=== PATIENT | female | born 1970 | race Caucasian/White ===

== ENCOUNTER 2016-12-13 14:17 | Inpatient (IN) | payer OTHER ==
[~2016-12-13] VITALS: Ht 160 cm; Wt 70.0 kg
[2016-12-13 14:17] VITALS: BP 139/88; PULSE 112; RESP 20; TEMP 97.6; O2SAT 99
--- NOTE | 2016-12-13 14:30 | PD ---
HPI Chief Complaint: Cardiac Complaint Time Seen by Provider: 14:30 Travel History International Travel<30 days: No Contact w/Intl Traveler<30days: No Traveled to known affect area: No History of Present Illness HPI 46-year-old female presents the emergency department via EMS with reports of palpitations. Patient has no history of this in the past. Patient states he developed palpitations after landing the dog out while dying her hair approximately 2 hours prior to my examination. Patient states a feeling of her heart racing in her chest without significant shortness of breath or pain. Patient states she thought it may be due to the hair dye, which she then shampooed out, without change in her symptoms. Patient then tried laying down in bed for a while but continued to have palpitations. She felt increasingly weak and somewhat nauseous, and called 911. When paramedics arrived, the patient was reported to have a pulse in the 200s, and she was given adenosine 1. Patient is better at time of exam. Patient denies changes in medications or supplements. She takes no allergies medications. She denies use of Sudafed. Patient denies use of large amount of caffeine or other stimulants. Patient does admit to recent increased stressors, but does not elaborate. She is allergic to penicillin. [facility] Social History Alcohol Use: No Tobacco Use: No Substance Use: No Allergies-Medications (Allergen,Severity, Reaction): Coded Allergies: Penicillin (Verified Allergy, Unknown, 12/13/16) Reported Meds & Prescriptions Reported Meds & Active Scripts Active Reported Vitamin D3 (Cholecalciferol) 5,000 Unit Cap 5,000 Units PO HS Multi Vitamin (Multiple Vitamin) 1 Tab Tab 1 Tab PO HS Physical Exam Narrative GENERAL: Patient appears in no acute distress. SKIN: Warm and dry. Normal color. Normal turgor. HEAD: Atraumatic. Normocephalic. EYES: Pupils equal and round. No scleral icterus. No injection or drainage. ENT: No nasal bleeding or discharge. Mucous membranes pink and moist. Pharynx is normal. TMs are normal bilaterally. Airway is patent. NECK: Trachea midline. No JVD. Supple nontender. No palpable goiter or thyroid. CARDIOVASCULAR: Tachycardic rate and normal rhythm. RESPIRATORY: No accessory muscle use. Clear to auscultation. Breath sounds equal bilaterally. GASTROINTESTINAL: Abdomen soft, non-tender, nondistended. Hepatic and splenic margins not palpable. MUSCULOSKELETAL: Extremities without clubbing, cyanosis, or edema. No obvious deformities. NEUROLOGICAL: Awake and alert. No obvious cranial nerve deficits. Motor grossly within normal limits. Five out of 5 muscle strength in the arms and legs. Normal speech. PSYCHIATRIC: Appropriate mood and affect; insight and judgment normal. Data Data Last Documented VS Vital Signs Date Time Temp Pulse Resp B/P Pulse Ox O2 Delivery O2 Flow Rate FiO2 12/13/16 15:30 133 20 97 Room Air 12/13/16 15:00 136/85 12/13/16 14:42 2 12/13/16 14:17 97.6 Orders Electrocardiogram (12/13/16 ) Ckmb (Isoenzyme) Profile (12/13/16 14:38) Complete Blood Count With Diff (12/13/16 14:38) Comprehensive Metabolic Panel (12/13/16 14:38) Magnesium (Mg) (12/13/16 14:38) Prothrombin Time / Inr (Pt) (12/13/16 14:38) Act Partial Throm Time (Ptt) (12/13/16 14:38) Troponin I (12/13/16 14:38) Chest, Single Ap (12/13/16 14:38) Ecg Monitoring (12/13/16 14:38) Bilateral Bp Monitoring (12/13/16 14:38) Iv Access Insert/Monitor (12/13/16 14:38) Oximetry (12/13/16 14:38) Oxygen Administration (12/13/16 14:38) Sodium Chloride 0.9% Flush (Ns Flush) (12/13/16 14:45) Sodium Chlorid 0.9% 500 Ml Inj (Ns 500 M (12/13/16 14:45) Urinalysis - C+S If Indicated (12/13/16 14:38) Ed Urine Pregnancytest Poc (12/13/16 14:38) Thyroid Stimulating Hormone (12/13/16 14:38) Diltiazem Inj (Cardizem Inj) (12/13/16 15:45) Sodium Chlorid 0.9% 500 Ml Inj (Ns 500 M (12/13/16 15:45) Lorazepam Inj (Ativan Inj) (12/13/16 15:45) Ct Pulmonary Angiogram (12/13/16 15:40) CKMB (12/13/16 14:45) CKMB% (12/13/16 14:45) Aspirin Chew (Aspirin Chew) (12/13/16 16:15) Admit Order (Ed Use Only) (12/13/16 16:51) Labs Laboratory Tests Test 12/13/16 14:45 White Blood Count 10.6 TH/MM3 Red Blood Count 4.15 MIL/MM3 Hemoglobin 12.6 GM/DL Hematocrit 36.6 % Mean Corpuscular Volume 88.3 FL Mean Corpuscular Hemoglobin 30.3 PG Mean Corpuscular Hemoglobin 34.4 % Concent Red Cell Distribution Width 13.6 % Platelet Count 208 TH/MM3 Mean Platelet Volume 10.9 FL Neutrophils (%) (Auto) 58.0 % Lymphocytes (%) (Auto) 33.8 % Monocytes (%) (Auto) 6.8 % Eosinophils (%) (Auto) 0.8 % Basophils (%) (Auto) 0.6 % Neutrophils # (Auto) 6.1 TH/MM3 Lymphocytes # (Auto) 3.6 TH/MM3 Monocytes # (Auto) 0.7 TH/MM3 Eosinophils # (Auto) 0.1 TH/MM3 Basophils # (Auto) 0.1 TH/MM3 CBC Comment DIFF FINAL Differential Comment Prothrombin Time 12.0 SEC Prothromb Time International 1.1 RATIO Ratio Activated Partial 26.0 SEC Thromboplast Time Urine Color COLORLESS Urine Turbidity CLEAR Urine pH 6.5 Urine Specific [place] 1.005 Urine Protein NEG mg/dL Urine Glucose (UA) NEG mg/dL Urine Ketones NEG mg/dL Urine Occult Blood NEG Urine Nitrite NEG Urine Bilirubin NEG Urine Urobilinogen LESS THAN 2.0 MG/DL Urine Leukocyte Esterase NEG Urine Squamous Epithelial <1 /hpf Cells Urine Mucus FEW /lpf Microscopic Urinalysis Comment CULT NOT INDICATED Sodium Level 137 MEQ/L Potassium Level 3.9 MEQ/L Chloride Level 104 MEQ/L Carbon Dioxide Level 23.2 MEQ/L Anion Gap 10 MEQ/L Blood Urea Nitrogen 17 MG/DL Creatinine 1.12 MG/DL Estimat Glomerular Filtration 52 ML/MIN Rate Random Glucose 100 MG/DL Calcium Level 8.2 MG/DL Magnesium Level 1.6 MG/DL Total Bilirubin 0.3 MG/DL Aspartate Amino Transf 28 U/L (AST/SGOT) Alanine Aminotransferase 28 U/L (ALT/SGPT) Alkaline Phosphatase 72 U/L Total Creatine Kinase 138 U/L Creatine Kinase MB 1.3 NG/ML Troponin I 0.11 NG/ML Total Protein 7.0 GM/DL Albumin 3.6 GM/DL Thyroid Stimulating Hormone 1.770 uIU/ML 3rd Gen [facility] Medical Decision Making Medical Screen Exam Complete: Yes Emergency Medical Condition: Yes Differential Diagnosis Palpitations. Anxiety. Atrial fibrillation. Atrial flutter. Thyroid issue. Narrative Course Patient is medically stable at time of exam. Labs ordered including CBC, CMP, cardiac panel, and TSH. Urinalysis and urine is ordered as well. EKG shows sinus tachycardia without significant ST changes. Chest x-ray is performed showing no acute findings per radiologist. Patient is given a 500 mL IV bolus normal saline. CBC is unremarkable. 1535 hrs. patient feels that her symptoms are returning and her pulse rate is noted to be within the 130s. Dr. De Jesus sees the patient as well. Patient is given an additional 500 and also IV saline bolus, as well as 1 mg of lorazepam IV. Patient is given [address] angiogram is ordered to rule out PE. Troponin was noted to be elevated at 0.11, the patient was given aspirin 324 mg by mouth. Call was placed to Dr. Bowie the incinerator attendant on-call and the patient was discussed to evaluate for further WI workup. The patient was reviewed with Dr. Bowie at 1610 hrs., and he felt that cyclic enzymes were warranted as well as CTA, but based on the patient's history and EKG, he did not feel anticoagulation was warranted at this time. Patient further discussed with Dr. De Jesus who recommended we call the hospitalist at this time. Patient discussed with the hospitalist, Dr. Haywood, who accepted the patient for admission. CT is still pending. Diagnosis Primary Impression: SVT (supraventricular tachycardia) Additional Impression: Elevated troponin level Admitting Information Admitting Physician Requests: Admit Condition: Stable Tonio Brower Dec 13, 2016 14:30
[2016-12-13 14:42] VITALS: RESP 20; O2SAT 99
[2016-12-13] MEDS ORDERED: SODIUM CHLORIDE 0.9% FLUSH 10 ML FLUSH IVF PRN (14:45)
[2016-12-13] MEDS ORDERED: SODIUM CHLORID 0.9% 500 ML INJ 500 ML IV ONE ×2 (14:45→15:45)
[2016-12-13 15:00] VITALS: BP 136/85; PULSE 112; RESP 18; O2SAT 98
--- NOTE | 2016-12-13 15:01 | RADRPT ---
EXAM DATE/TIME: 12/13/2016 14:41 [facility] COMPARISON: No previous studies available for comparison. INDICATIONS : Heart palpitations. MEDICAL HISTORY : None. SURGICAL HISTORY : None. ENCOUNTER: Initial ACUITY: 1 day PAIN SCORE: 0/10 LOCATION: Bilateral chest FINDINGS: A single view of the chest demonstrates the lungs to be symmetrically aerated without evidence of mas s, infiltrate or effusion. The cardiomediastinal contours are unremarkable. Osseous structures are intact. CONCLUSION: No acute disease. Robert Xiao MD FACR on December 13, 2016 at 14:59 Board Certified Radiologist. This report was verified electronically.
[2016-12-13 15:15] LABS: AUTOMATED NEUTROPHIL # 6.1 TH/MM3 (1.8-7.7); BASOPHIL # 0.1 TH/MM3 (0-0.2); BASOPHIL % 0.6 % (0.0-2.0); EOSINOPHIL # 0.1 TH/MM3 (0-0.4); EOSINOPHIL % 0.8 % (0.0-4.0); HEMATOCRIT 36.6 % (35.0-46.0); HEMO FLAGS DIFF FINAL; LYMPH % 33.8 % (9.0-44.0); LYMPHOCYTE # 3.6 TH/MM3 (1.0-4.8); MEAN CELL VOLUME 88.3 FL (80.0-100.0); MEAN CORPUSCULAR HEMOGLOBIN 30.3 PG (27.0-34.0); MEAN CORPUSCULAR HGB CONC 34.4 % (32.0-36.0); MONO % 6.8 % (0.0-8.0); PLATELET COUNT 208 TH/MM3 (150-450); RED BLOOD COUNT 4.15 MIL/MM3 (4.00-5.30); RED CELL DISTRIBUTION WIDTH 13.6 % (11.6-17.2); WHITE BLOOD COUNT 10.6 TH/MM3 (4.0-11.0)
[2016-12-13 15:21] LABS: BLOOD, URINE NEG (NEG); COMMENT (UR) CULT NOT INDICATED; CULTURE IF INDICATED CULT NOT INDICATED; GLUCOSE,URINE NEG (NEG); KETONE, URINE NEG (NEG); MUCUS URINE FEW /lpf (OCC); NITRITE,URINE NEG (NEG); PH, URINE 6.5 (5.0-8.5); SQUAMOUS EPITHELIAL CELL URINE <1 /hpf (0-5); URINE COLOR COLORLESS (YELLW/STRAW)
[2016-12-13 15:30] VITALS: PULSE 133; RESP 20; O2SAT 97
[2016-12-13 15:30] LABS: INTERNATIONAL NORMALIZED RATIO 1.1 RATIO
[2016-12-13] MEDS ORDERED: LORazepam 2 MG/ML VIAL IV PUSH ONE (15:45)
[2016-12-13] MEDS ORDERED: DILTIAZEM HCL 25 MG/5 ML VIAL IV ONE (15:45)
[2016-12-13 15:55] LABS: ALT (GPT) 28 U/L (10-53); ANION GAP 10 MEQ/L (5-15); AST (GOT) 28 U/L (15-37); BICARBONATE 23.2 MEQ/L (21.0-32.0); BLOOD UREA NITROGEN 17 MG/DL (7-18); CHLORIDE 104 MEQ/L (98-107); GLOMERULAR FILTRATION RATE 52 ML/MIN (>89); MAGNESIUM 1.6 MG/DL (1.5-2.5); POTASSIUM 3.9 MEQ/L (3.5-5.1); SODIUM (NA) 137 MEQ/L (136-145)
[2016-12-13 15:59] LABS: ALKALINE PHOSPHATASE 72 U/L (45-117); CREATINE KINASE 138 U/L (26-192); TOTAL BILIRUBIN ADULT 0.3 MG/DL (0.2-1.0)
[2016-12-13 16:12] LABS: CKMB 1.3 NG/ML (0.5-3.6)
[2016-12-13] MEDS ORDERED: ASPIRIN 81 MG CHEW TAB CHEW ONE (16:15)
[2016-12-13] MEDS ORDERED: MULT-135 PO (17:21)
[2016-12-13] MEDS ORDERED: CHOL5000 PO (17:21)
[2016-12-13] MEDS ORDERED: IOHEXOL 350 MG/ML 10 ML VIAL (for RAD DIAG) IV ONE (17:42)
--- NOTE | 2016-12-13 18:16 | RADRPT ---
EXAM DATE/TIME: 12/13/2016 17:41 [facility] COMPARISON: No previous studies available for comparison. INDICATIONS : Chest pain and palpitations; rule out pulmonary embolus. IV CONTRAST: 75 cc Omnipaque 350 (iohexol) IV RADIATION DOSE: 23.38 CTDIvol (mGy) MEDICAL HISTORY : None SURGICAL HISTORY : None. ENCOUNTER: Initial ACUITY: 1 day PAIN SCALE: 6/10 LOCATION: chest TECHNIQUE: Volumetric scanning of the chest was performed using a pulmonary embolism protocol MIP images were re constructed. Using automated exposure control and adjustment of the mA and/or kV according to patien t size, radiation dose was kept as low as reasonably achievable to obtain optimal diagnostic quality images. FINDINGS: PULMONARY ARTERIES: No filling defects are seen in the pulmonary arteries through the segmental level. LUNGS: There is no consolidation or pneumothorax . No concerning pulmonary nodule is visualized. PLEURAE: There is no pleural thickening or pleural effusion. MEDIASTINUM: There is good visualization of the great vessels of the middle mediastinum. No evidence of mediastin al or hilar adenopathy/mass. MUSCULOSKELETAL: Within normal limits for patient age. MISCELLANEOUS: The visualized upper abdominal organs demonstrate no acute abnormality. CONCLUSION: Normal examination. Andrea De MD on December 13, 2016 at 18:12 Board Certified Radiologist. This report was verified electronically.
--- NOTE | 2016-12-13 18:18 | HHI.HP ---
[facility] Service [facility] Primary Care Physician Angle Venegas MD Admission Diagnosis Elevated Troponin/SVT Diagnoses: Chief Complaint: palpitations Travel History International Travel<30 Days: No Contact w/Intl Traveler <30 Da: No Traveled to Known Affected Are: No History of Present Illness 46-year-old female with no significant past medical history presents with acute onset of palpitations and near syncope today 12/13/16. The patient reports today around 12pm she decided to dye her hair, then she took her dog outside, went back inside to shower, then started feeling her heart racing very fast. She tried taking a cold shower however the palpitations didn't go away. She then got dressed, and had an overwhelming sensation to have bowel movement. She then still didn't feel well, felt very weak and as if she was going to pass out, then her Dr. Smith and called 911. While awaiting EVAC, she still felt as if she was going to pass out so she laid down on the floor and closed her eyes. She felt clammy and nauseous but no vomiting. She reports a slight "twinge " in the center of her chest that would last a few seconds, but denies any specific chest pains or shortness of breath. The patient does report a history of palpitations, first episode 10years ago and a few more episodes over the past few years, that went away on its own after a few minutes. She denies any recent fevers/chills. She does occasionally drink tea and few sips of coffee but nothing new over the past week. She did have a headache last night and took ibuprofen, headache now relieved. Upon EVAC arrival, HR in the 200s, EKG showed SVT, and she was given adenosine 1. Heart rate has been in the 110-130s since arrival, she was given IV Cardizem 10mg x1, IV Ativan 0.5mg, and IVF boluses. Heart rate now in the 110s. Initial troponin 0.11. ER PA discussed with binder technician construction equipment mechanic helper Dr. Bowie, recommended admission for serial cardiac enzymes, and CT-PA to rule out PE. Review of Systems Constitutional: COMPLAINS OF: Diaphoretic episodes, DENIES: Fever, Chills, Dizziness Endocrine: DENIES: Polydipsia, Polyuria, Polyphagia Eyes: DENIES: Blurred vision, Vision loss, Double Vision Ears, nose, mouth, throat: DENIES: Throat pain, Running Nose, Odynophagia Respiratory: DENIES: Cough, Shortness of breath Cardiovascular: COMPLAINS OF: Palpitations, DENIES: Chest pain, Syncope, Dyspnea on Exertion, Lower Extremity Edema, Orthopnea Gastrointestinal: COMPLAINS OF: Diarrhea, Nausea, DENIES: Abdominal pain, Constipation, Vomiting Genitourinary: DENIES: Urinary frequency, Urgency, Dysuria Musculoskeletal: COMPLAINS OF: Joint pain, DENIES: Joint Swelling, Back pain, Neck pain Integumentary: DENIES: Pruritus, Rash Hematologic/lymphatic: DENIES: Bruising, Lymphadenopathy Immunologic/allergic: DENIES: Eczema, Urticaria Neurologic: COMPLAINS OF: Headache, DENIES: Abnormal gait, Localized weakness , Paresthesias Psychiatric: COMPLAINS OF: Anxiety, DENIES: Depression Past Family Social History Past Medical History Knee pain Menopausal Vitamin D deficiency Past Surgical History Hernia repair, age 22 [place] teeth extraction, age 19 Reported Medications Multivitamin daily Vitamin D daily Allergies: Coded Allergies: Penicillin (Verified Allergy, Unknown, 12/13/16) Active Ordered Medications Current Medications Medications (Trade) Dose Ordered Sig/Omega Route Start Time Stop Time Status Last Admin (NS Flush) 2 ml UNSCH PRN IVF 12/13/16 14:45 12/13/16 16:52 Family History Patient was adopted, no family history available Social History Denies any tobacco, alcohol, or illicit drug use. Physical Exam Vital Signs Vital Signs Date Time Temp Pulse Resp B/P Pulse Ox O2 Delivery O2 Flow Rate FiO2 12/13/16 15:30 133 20 97 Room Air 12/13/16 15:00 112 18 136/85 98 Room Air 12/13/16 14:43 16 99 Room Air 12/13/16 14:42 20 99 Room Air 12/13/16 14:42 99 Nasal Cannula 2 12/13/16 14:17 97.6 112 20 139/88 99 Physical Exam GENERAL: This is a well-nourished, well-developed patient, in no apparent distress. SKIN: No rashes, ecchymoses or lesions. Cool and dry. HEAD: Atraumatic. Normocephalic. No temporal or scalp tenderness. EYES: Pupils equal round and reactive. Extraocular motions intact. No scleral icterus. No injection or drainage. ENT: Nose without bleeding, purulent drainage or septal hematoma. Throat without erythema, tonsillar hypertrophy or exudate. Uvula midline. Airway patent. NECK: Trachea midline. No JVD or lymphadenopathy. Supple, nontender, no meningeal signs. CARDIOVASCULAR: Tachycardic, regular rhythm without murmurs, gallops, or rubs. RESPIRATORY: Clear to auscultation. Breath sounds equal bilaterally. No wheezes , rales, or rhonchi. GASTROINTESTINAL: Abdomen soft, non-tender, nondistended. MUSCULOSKELETAL: Extremities without clubbing, cyanosis, or edema. No joint tenderness, effusion, or edema noted. No calf tenderness. NEUROLOGICAL: Awake and alert. Cranial nerves II through XII intact. Motor and sensory grossly within normal limits. 5/5 muscle strength in all muscle groups. Normal speech. Laboratory Laboratory Tests Test 12/13/16 14:45 White Blood Count 10.6 Red Blood Count 4.15 Hemoglobin 12.6 Hematocrit 36.6 Mean Corpuscular Volume 88.3 Mean Corpuscular Hemoglobin 30.3 Mean Corpuscular Hemoglobin 34.4 Concent Red Cell Distribution Width 13.6 Platelet Count 208 Mean Platelet Volume 10.9 Neutrophils (%) (Auto) 58.0 Lymphocytes (%) (Auto) 33.8 Monocytes (%) (Auto) 6.8 Eosinophils (%) (Auto) 0.8 Basophils (%) (Auto) 0.6 Neutrophils # (Auto) 6.1 Lymphocytes # (Auto) 3.6 Monocytes # (Auto) 0.7 Eosinophils # (Auto) 0.1 Basophils # (Auto) 0.1 CBC Comment DIFF FINAL Differential Comment Prothrombin Time 12.0 Prothromb Time International 1.1 Ratio Activated Partial 26.0 Thromboplast Time Urine Color COLORLESS Urine Turbidity CLEAR Urine pH 6.5 Urine Specific [place] 1.005 Urine Protein NEG Urine Glucose (UA) NEG Urine Ketones NEG Urine Occult Blood NEG Urine Nitrite NEG Urine Bilirubin NEG Urine Urobilinogen LESS THAN 2.0 Urine Leukocyte Esterase NEG Urine Squamous Epithelial <1 Cells Urine Mucus FEW Microscopic Urinalysis Comment CULT NOT INDICATED Sodium Level 137 Potassium Level 3.9 Chloride Level 104 Carbon Dioxide Level 23.2 Anion Gap 10 Blood Urea Nitrogen 17 Creatinine 1.12 Estimat Glomerular Filtration 52 Rate Random Glucose 100 Calcium Level 8.2 Magnesium Level 1.6 Total Bilirubin 0.3 Aspartate Amino Transf 28 (AST/SGOT) Alanine Aminotransferase 28 (ALT/SGPT) Alkaline Phosphatase 72 Total Creatine Kinase 138 Creatine Kinase MB 1.3 Troponin I 0.11 Total Protein 7.0 Albumin 3.6 Thyroid Stimulating Hormone 1.770 3rd Gen Result Diagram: 12/13/16 1445 12/13/16 1445 Imaging Last Impressions Chest X-Ray 12/13/16 1438 Signed Impressions: Service Date/Time: Tuesday, December 13, 2016 14:41 - CONCLUSION: No acute disease. Robert Xiao MD FACR Assessment and Plan Assessment and Plan 46-year-old female with no significant past medical history presents with acute onset of palpitations and near syncope today 12/13/16. SVT: Per EVAC, HR in the 200s, EKG showed SVT, and she was given adenosine 1 en route. HR still 130s upon arrival, s/p IV Cardizem 10mg x1, IV Ativan 0.5mg, and IVF boluses. Heart rate now in the 110s. Initial troponin 0.11. ER PA discussed with binder technician construction equipment mechanic helper Dr. Bowie, recommended admission for serial cardiac enzymes, and CT-PA to rule out PE. Possible component of anxiety, patient admits to increased stressors at home. -CT-PA results pending -Continue to trend serial cardiac enzymes and EKG -monitor on telemetry -cardiology consult -continue aspirin -TSH wnl -check lipid panel in am -start on po Cardizem 30mg q6h for now pending further input from Cardiology. Patient reports having significant side effects from beta blockers years ago when this was given to her for what was described as panic attacks. - Ativan PRN anxiety Elevated Troponin: initial trop 0.11. Likely secondary to SVT episode. -continue to trend serial cardiac enzymes and EKG -IV morphine prn if developed chest pain JACQUI: Cr 1.12. Likely pre renal azotemia secondary to mild dehydration. S/p IVF boluses in the ER. -continue IV maintenance fluids -recheck BMP in am Hypomagnesemia: Mag 1.6 -give IV Mag Sulfate 1G x2 -repeat mag in am Anxiety: suspect component of anxiety related to patient's symptoms. S/p IV ativan 0.5mg x1 in the ER. -continue Ativan 0.5mg q8h prn anxiety -outpatient f/up with PCP or psychiatry is advised DVT Prophylaxis: teds/SCDs Written by Kirstie Welsh, acting as scribe for Dr. Haywood on 12/13/16 at 18:12. All or portions of this note were transcribed by scribe [Kirstie Welsh]. I, Dr. Natasha Haywood personally performed the history, physical exam, and medical decision making; and confirmed the accuracy of the information in the transcribed note. Authenticated by Dr. Natasha Haywood on 12/13/16 at 19:16. Discussed Condition With Patient, ER PA, patient's Dr. Smith Physician Certification 2 Midnight Certification Type: Admission for Inpatient Services Order for Inpatient Services The services are ordered in accordance with Medicare regulations or non- Medicare payer requirements, as applicable. In the case of services not specified as inpatient-only, they are appropriately provided as inpatient services in accordance with the 2-midnight benchmark. Estimated LOS (days): 2 days is the estimated time the patient will need to remain in the hospital, assuming treatment plan goals are met and no additional complications. Post-Hospital Plan: Home Kirstie Welsh PA-C Dec 13, 2016 18:18 Natasha Haywood MD Dec 13, 2016 19:17
[2016-12-13] MEDS ORDERED: ONDANSETRON HCL 4 MG/2 ML VIAL IVP PRN (18:30)
[2016-12-13] MEDS ORDERED: DOCUSATE SODIUM 100 MG CAP PO PRN (18:30)
[2016-12-13] MEDS ORDERED: NALOXONE HCL 0.4 MG/ML AMP IV PRN (18:30)
[2016-12-13] MEDS ORDERED: IBUPROFEN 400 MG TAB PO PRN (18:30)
[2016-12-13] MEDS ORDERED: MORPHINE SULFATE 4 MG/ML INJ IV PRN (18:30)
[2016-12-13] MEDS ORDERED: SODIUM CHLORIDE 0.9% FLUSH 10 ML FLUSH IV FLUSH PRN (18:30)
[2016-12-13] MEDS ORDERED: traMADol HCL 50 MG TAB PO PRN (18:30)
[2016-12-13] MEDS ORDERED: LORazepam 0.5 MG TAB PO PRN (18:45)
[2016-12-13] MEDS: MAGNESIUM SULFATE 1 GM PREMIX 100 ML IV SCH ×2 (18:59→20:46)
[2016-12-13] MEDS ORDERED: DILTIAZEM HCL 30 MG TAB PO ONE (19:00)
[2016-12-13] MEDS ORDERED: SODIUM CHLOR 0.9% 1000 ML INJ 1,000 ML IV SCH (19:00)
[2016-12-13] MEDS: SODIUM CHLORIDE 0.9% FLUSH 10 ML FLUSH IV FLUSH SCH (20:50)
[2016-12-13 20:51] VITALS: BP 124/70; PULSE 91; RESP 18; TEMP 98.6; O2SAT 98
[2016-12-13] MEDS: DILTIAZEM HCL 30 MG TAB PO SCH (23:16)
[2016-12-14 00:32] VITALS: BP 137/77; PULSE 87; RESP 18; TEMP 98.5; O2SAT 99
[2016-12-14 03:09] LABS: AUTOMATED NEUTROPHIL # 5.3 TH/MM3 (1.8-7.7); BASOPHIL # 0.1 TH/MM3 (0-0.2); BASOPHIL % 0.7 % (0.0-2.0); EOSINOPHIL % 0.2 % (0.0-4.0); HEMATOCRIT 36.9 % (35.0-46.0); HEMO FLAGS DIFF FINAL; LYMPH % 36.5 % (9.0-44.0); LYMPHOCYTE # 3.6 TH/MM3 (1.0-4.8); MEAN CELL VOLUME 88.6 FL (80.0-100.0); MEAN CORPUSCULAR HEMOGLOBIN 30.1 PG (27.0-34.0); MONO % 8.7 % (0.0-8.0); NEUT % 53.9 % (16.0-70.0); PLATELET COUNT 210 TH/MM3 (150-450); RED BLOOD COUNT 4.16 MIL/MM3 (4.00-5.30); RED CELL DISTRIBUTION WIDTH 13.7 % (11.6-17.2); WHITE BLOOD COUNT 9.9 TH/MM3 (4.0-11.0)
[2016-12-14 03:38] LABS: ALKALINE PHOSPHATASE 73 U/L (45-117); ALT (GPT) 25 U/L (10-53); ANION GAP 8 MEQ/L (5-15); AST (GOT) 19 U/L (15-37); BICARBONATE 25.4 MEQ/L (21.0-32.0); BLOOD UREA NITROGEN 9 MG/DL (7-18); CHLORIDE 109 MEQ/L (98-107); CREATINE KINASE 110 U/L (26-192); GLOMERULAR FILTRATION RATE 108 ML/MIN (>89); HDL CHOLESTEROL 75.9 MG/DL (40.0-60.0); LDL CHOLESTEROL 82 MG/DL (0-99); MAGNESIUM 2.4 MG/DL (1.5-2.5); SODIUM (NA) 142 MEQ/L (136-145); TOTAL BILIRUBIN ADULT 0.5 MG/DL (0.2-1.0)
[2016-12-14 05:11] VITALS: BP 100/62; PULSE 68; RESP 18; TEMP 98.4; O2SAT 98
[2016-12-14] MEDS: DILTIAZEM HCL 30 MG TAB PO SCH ×3 (05:30→17:10)
[2016-12-14 06:11] VITALS: PULSE 95
[2016-12-14 06:44] VITALS: BP 120/74; PULSE 95
[2016-12-14 08:00] VITALS: BP 115/62; PULSE 88; RESP 20; TEMP 98.7; O2SAT 99
[2016-12-14] MEDS ORDERED: ASPIRIN EC 81 MG TABEC PO SCH (09:00)
[2016-12-14 12:00] VITALS: BP 114/74; PULSE 71; RESP 20; TEMP 98.2; O2SAT 97
--- NOTE | 2016-12-14 12:25 | PD.CONS ---
HPI Service Cardiology Consult Requested By [facility] Reason for Consult SVT Primary Care Physician Angle Venegas MD History of Present Illness 46 y/o F with past medical history significant for early menopause that presents with palpitations and near syncope. She reports being in her usual state of health until yesterday around 12pm when she starting feeling palpitations associated with nausea. She tried different maneuvers eg taking a cold shower, Valsalva however the palpitations didn't go away for which she call EMS. Upon EMS arrival, HR in the 200s, EKG showed SVT, and she was given adenosine 1 which slowed the heart rate. She denied chest or shortness of breath. The patient does report a history of palpitations, first episode 10 years ago and a few more episodes over the past few years, that went away on its own after a few minutes. She denies any recent fevers/chills. Cardiology consulted for further management and evaluation. Review of Systems Consitutional: DENIES: Fatigue, Fever, Chills, Weight gain, Weight loss Eyes: DENIES: Amaurosis Fugax, Change in vision HEENT: DENIES: Lightheadedness, Change in hearing Respiratory: DENIES: See HPI, Cough, Snoring, Shortness of breath, Wheezing, Sputum production Cardiovascular: DENIES: See HPI, Chest pain, Palpitations, Syncope, Tachycardia Gastrointestinal: DENIES: Nausea, Vomiting, Change in bowel habits, Reflux, Bloody stools, Melena Genitourinary: DENIES: Urinary incontinence, Difficulty voiding Integumentary: DENIES: Rash Neurologic: DENIES: Tingling or numbness, Memory problems, Poor Balance, Stroke symptoms Musculoskeletal: DENIES: Joint pain, Muscle pain, Limited range of motion, Back pain Psychiatric: DENIES: Anxiety, Depression, Sleep disturbances Hematologic: DENIES: Bruising tendencies, Bleeding tendencies Endocrine: DENIES: Weight gain, Weight loss, Thyroid disease Past Family Social History Allergies: Coded Allergies: Penicillin (Verified Allergy, Unknown, 12/13/16) Past Medical History Early Menopause Reported Medications Reported Meds & Active Scripts Active Reported Vitamin D3 (Cholecalciferol) 5,000 Unit Cap 5,000 Units PO HS Multi Vitamin (Multiple Vitamin) 1 Tab Tab 1 Tab PO HS Active Ordered Medications Current Medications Medications (Trade) Dose Ordered Sig/Omega Route Start Time Stop Time Status Last Admin (NS Flush) 2 ml UNSCH PRN IV FLUSH 12/13/16 18:30 (NS Flush) 2 ml BID IV FLUSH 12/13/16 21:00 12/13/16 20:50 (Zofran Inj) 4 mg Q6H PRN IVP 12/13/16 18:30 (Colace) 100 mg Q12H PRN PO 12/13/16 18:30 (Motrin) 400 mg Q6H PRN PO 12/13/16 18:30 (Morphine Inj) 2 mg Q3H PRN IV 12/13/16 18:30 (Ultram) 50 mg Q6H PRN PO 12/13/16 18:30 (Narcan Inj) 0.4 mg UNSCH PRN IV 12/13/16 18:30 (Cardizem) 30 mg Q6HR PO 12/14/16 00:00 12/14/16 05:30 (Ativan) 0.5 mg Q8H PRN PO 12/13/16 18:45 (Ecotrin Ec) 81 mg DAILY PO 12/14/16 09:00 12/14/16 09:11 Family History N/A she was adopted Social History Denies illict drug use, Smoking or alcohol Physical Exam Vital Signs Vital Signs Date Time Temp Pulse Resp B/P Pulse Ox O2 Delivery O2 Flow Rate FiO2 12/14/16 08:00 98.7 88 20 115/62 99 12/14/16 06:44 95 120/74 12/14/16 06:11 95 12/14/16 05:11 98.4 68 18 100/62 98 12/14/16 00:32 98.5 87 18 137/77 99 12/13/16 20:51 98.6 91 18 124/70 98 12/13/16 20:13 Room Air 12/13/16 15:30 133 20 97 Room Air 12/13/16 15:00 112 18 136/85 98 Room Air 12/13/16 14:43 16 99 Room Air 12/13/16 14:42 20 99 Room Air 12/13/16 14:42 99 Nasal Cannula 2 12/13/16 14:17 97.6 112 20 139/88 99 Physical Exam GENERAL: Well-nourished, well-developed patient. SKIN: Warm and dry. HEAD: Normocephalic. EYES: No scleral icterus. No injection or drainage. NECK: Supple, trachea midline. No JVD or lymphadenopathy. CARDIOVASCULAR: Regular rate and rhythm without murmurs, gallops, or rubs. RESPIRATORY: Breath sounds equal bilaterally. No accessory muscle use. GASTROINTESTINAL: Abdomen soft, non-tender, nondistended. EXTREMITIES: No cyanosis, or edema. NEUROLOGICAL: Awake, alert, and oriented x 3. Non-focal. Laboratory Laboratory Tests Test 12/13/16 12/13/16 12/14/16 14:45 20:40 02:47 White Blood Count 10.6 9.9 Red Blood Count 4.15 4.16 Hemoglobin 12.6 12.6 Hematocrit 36.6 36.9 Mean Corpuscular Volume 88.3 88.6 Mean Corpuscular Hemoglobin 30.3 30.1 Mean Corpuscular Hemoglobin 34.4 34.0 Concent Red Cell Distribution Width 13.6 13.7 Platelet Count 208 210 Mean Platelet Volume 10.9 10.4 Neutrophils (%) (Auto) 58.0 53.9 Lymphocytes (%) (Auto) 33.8 36.5 Monocytes (%) (Auto) 6.8 8.7 Eosinophils (%) (Auto) 0.8 0.2 Basophils (%) (Auto) 0.6 0.7 Neutrophils # (Auto) 6.1 5.3 Lymphocytes # (Auto) 3.6 3.6 Monocytes # (Auto) 0.7 0.9 Eosinophils # (Auto) 0.1 0.0 Basophils # (Auto) 0.1 0.1 CBC Comment DIFF FINAL DIFF FINAL Differential Comment Prothrombin Time 12.0 Prothromb Time International 1.1 Ratio Activated Partial 26.0 Thromboplast Time Urine Color COLORLESS Urine Turbidity CLEAR Urine pH 6.5 Urine Specific Keyser 1.005 Urine Protein NEG Urine Glucose (UA) NEG Urine Ketones NEG Urine Occult Blood NEG Urine Nitrite NEG Urine Bilirubin NEG Urine Urobilinogen LESS THAN 2.0 Urine Leukocyte Esterase NEG Urine Squamous Epithelial <1 Cells Urine Mucus FEW Microscopic Urinalysis Comment CULT NOT INDICATED Sodium Level 137 142 Potassium Level 3.9 4.0 Chloride Level 104 109 Carbon Dioxide Level 23.2 25.4 Anion Gap 10 8 Blood Urea Nitrogen 17 9 Creatinine 1.12 0.60 Estimat Glomerular Filtration 52 108 Rate Random Glucose 100 104 Calcium Level 8.2 8.3 Magnesium Level 1.6 2.4 Total Bilirubin 0.3 0.5 Aspartate Amino Transf 28 19 (AST/SGOT) Alanine Aminotransferase 28 25 (ALT/SGPT) Alkaline Phosphatase 72 73 Total Creatine Kinase 138 123 110 Creatine Kinase MB 1.3 Troponin I 0.11 0.21 0.07 Total Protein 7.0 7.1 Albumin 3.6 3.8 Thyroid Stimulating Hormone 1.770 3rd Gen Triglycerides Level 43 Cholesterol Level 166 LDL Cholesterol 82 HDL Cholesterol 75.9 Cholesterol/HDL Ratio 2.18 Result Diagram: 12/14/16 0247 12/14/16 [address] Angiography 12/13/16 1540 Signed Impressions: Service Date/Time: Tuesday, December 13, 2016 17:41 - CONCLUSION: Normal examination. Andrea De MD Chest X-Ray 12/13/16 1438 Signed Impressions: Service Date/Time: Tuesday, December 13, 2016 14:41 - CONCLUSION: No acute disease. Robert Xiao MD FACR Assessment and Plan Problem List: (1) SVT (supraventricular tachycardia) Assessment and Plan: 46 y/o F admitted with SVT. Unfortunately the EMS strips are not in the chart. Here she has remained in sinus rhythm with episodes of sinus tachycardia. She has been started on Cardizem 30mg. Interestingly she has been dealing with pre- early menopause report hot flashes, no menses in the last 4 months ? if palpitations are hormonal changes vs. inappropriate sinus tachycardia. Regarding mildly elevated troponin this most likely due from demand ischemia in the setting of SVT. Recommendations 1. Cont Cardizem 2. IV hydration 3. 2-DEcho to r/o structural heart disease 4. If she remains stable she can be d/c home with a Holter monitor with f/u with EP Dr. Reyes as outpatient. 5. Follow up with OBGYN Thank you for the opportunity to take part in the care of this patient (2) Elevated troponin level Demar Collado MD Dec 14, 2016 12:25
--- NOTE | 2016-12-14 13:50 | HHI.PR ---
Subjective Remarks Patient reports feeling better today. No further heart palpitations. No chest pain or shortness of breath. No more episodes of diarrhea. Telemetry reviewed. Heart rate in the 70s and 80s. Discussed with the patient's Dr. Smith at bedside. Objective Vitals Vital Signs Date Time Temp Pulse Resp B/P Pulse Ox O2 Delivery O2 Flow Rate FiO2 12/14/16 08:00 98.7 88 20 115/62 99 12/14/16 06:44 95 120/74 12/14/16 06:11 95 12/14/16 05:11 98.4 68 18 100/62 98 12/14/16 00:32 98.5 87 18 137/77 99 12/13/16 20:51 98.6 91 18 124/70 98 12/13/16 20:13 Room Air 12/13/16 15:30 133 20 97 Room Air 12/13/16 15:00 112 18 136/85 98 Room Air 12/13/16 14:43 16 99 Room Air 12/13/16 14:42 20 99 Room Air 12/13/16 14:42 99 Nasal Cannula 2 12/13/16 14:17 97.6 112 20 139/88 99 I/O 12/13/16 12/13/16 12/13/16 12/14/16 12/14/16 12/14/16 07:00 15:00 23:00 07:00 15:00 23:00 Output Total 400 ml 400 ml Balance -400 ml -400 ml Output Urine Total 400 ml 400 ml # Voids 1 3 # Bowel Movements 0 Result Diagram: 12/14/16 0247 12/14/16 [address] Angiography 12/13/16 1540 Signed Impressions: Service Date/Time: Tuesday, December 13, 2016 17:41 - CONCLUSION: Normal examination. Andrea De MD Chest X-Ray 12/13/16 1438 Signed Impressions: Service Date/Time: Tuesday, December 13, 2016 14:41 - CONCLUSION: No acute disease. Robert Xiao MD FACR Objective Remarks GENERAL: This is a well-nourished, well-developed patient, in no apparent distress. CARDIOVASCULAR: Normal rate and regular rhythm without murmurs, gallops, or rubs. RESPIRATORY: Good respiratory efforts. Breath sounds equal and clear to auscultation bilaterally. GASTROINTESTINAL: Abdomen soft, non-tender, non-distended. Normal active bowel sounds MUSCULOSKELETAL: Extremities without cyanosis, or edema. NEURO: Alert & Oriented x4 to person, place, time, situation. Moves all ext x4 PSYCH: Appropriate mood and affect. A/P Assessment and Plan 46-year-old female with no significant past medical history presents with acute onset of heart palpitations and near syncope on 12/13/16. SVT: Per [facility], HR in the 200s, EKG showed SVT, and she was given adenosine 1 en route. HR still 130s upon arrival, s/p IV Cardizem 10mg x1, IV Ativan 0.5mg, and IVF boluses. Heart drain remain in the 110/120s on admission. Patient was started on oral Cardizem. - Appreciate cardiology following with recommendation to continue Cardizem, obtain 2-D echo to rule out structural disease, if remains stable, can be discharged with a Holter monitor and outpatient follow-up with Dr. Reyes - [facility] wnl, CT pulmonary angiogram negative. - Lipid panel ok Elevated Troponin: 0.11>0.21>0.07. Likely secondary to demand ischemia from SVT per Cardiology. See above treatment for the underlying issue. JACQUI: Cr 1.12. Likely pre renal azotemia secondary to mild dehydration. Resolved with IVF -DC IVF Anxiety/premenopausal symptoms: May be contributing to the patient's symptoms. -Outpatient f/up with PCP and OBGYN advised. Discharge Planning Discharge home in good condition with a Holter monitor Follow-up with: PCP and EP Dr. Reyes Meds: Cardizem 30 mg Q6hrs Diet: Regular as tolerated Activity: Regular as tolerated Natasha Haywood MD Dec 14, 2016 13:50
--- NOTE | 2016-12-14 14:43 | EKG ---
Date Performed: 12/13/2016 Time Performed: 20:53:57 PTAGE: 46 years EKG: Sinus rhythm Compared to prior tracing no significant change NORMAL ECG PREVIOUS TRACING : 12/13/2016 14.27 DOCTOR: Harlan Chase Interpretating Date/Time 12/14/2016 14:39:44
--- NOTE | 2016-12-14 14:43 | EKG ---
Date Performed: 12/14/2016 Time Performed: 03:02:58 PTAGE: 46 years EKG: Sinus rhythm Septal ST-T changes are nonspecific Compared to prior tracing no significant change Borderline ECG NO PREVIOUS TRACING DOCTOR: Harlan Chase Interpretating Date/Time 12/14/2016 14:39:52
--- NOTE | 2016-12-14 14:43 | EKG ---
Date Performed: 12/13/2016 Time Performed: 14:27:33 PTAGE: 46 years EKG: SINUS TACHYCARDIA POSSIBLE LEFT ATRIAL ENLARGEMENT Compared to prior tracing no significant change ABNORMAL RHYTHM ECG PREVIOUS TRACING : 12/13/2016 14.27 DOCTOR: Harlan Chase Interpretating Date/Time 12/14/2016 14:39:33
--- NOTE | 2016-12-14 15:33 | EC ---
Study Study Date:12/14/2016 STUDY CONCLUSIONS SUMMARY - Left ventricle: The cavity size was normal. Wall thickness was normal. Systolic function was normal. The estimated ejection fraction was in the range of 60% to 65%. Wall motion was normal; there were no regional wall motion abnormalities. - Aortic valve: Valve area: 2.25cm^2 (Vmax). If LV function is below 40, please consider prescribing an ACEI or ARB or document rationale for non-use. PROCEDURE DATA STUDY STATUS: Elective. Procedure: Transthoracic echocardiography. Image quality was good. Scanning was performed from the parasternal, apical, and subcostal acoustic windows. Study completion: The patient tolerated the procedure well. Transthoracic echocardiography. M-mode, complete 2D, complete spectral Doppler, and color Doppler. Height: Height: 62in. Weight: Weight: 154.7lb. Body mass index: BMI: 28.4kg/m^2. Body surface area: BSA: 1.72m^2. Patient status: Inpatient. CARDIAC ANATOMY LEFT VENTRICLE: The cavity size was normal. Wall thickness was normal. Systolic function was normal. The estimated ejection fraction was in the range of 60% to 65%. Wall motion was normal; there were no regional wall motion abnormalities. AORTIC VALVE: Trileaflet; normal thickness leaflets. Doppler: Transvalvular velocity was within the normal range. There was no stenosis. No regurgitation. Valve area: 2.25cm^2 (Vmax). Indexed valve area: 1.31cm^2/m^2 (Vmax). AORTA: Aortic root: The aortic root was normal in size. MITRAL VALVE: Structurally normal valve. Doppler: Transvalvular velocity was within the normal range. There was no evidence for stenosis. No regurgitation. Peak gradient: 3mm Hg (D). LEFT ATRIUM: The atrium was normal in size. RIGHT VENTRICLE: The cavity size was normal. Wall thickness was normal. PULMONIC VALVE: Doppler: Transvalvular velocity was within the normal range. There was no evidence for stenosis. No regurgitation. TRICUSPID VALVE: Structurally normal valve. Doppler: Transvalvular velocity was within the normal range. No regurgitation. PULMONARY ARTERY: The main pulmonary artery was normal-sized. Systolic pressure was within the normal range. RIGHT ATRIUM: The atrium was normal in size. PERICARDIUM: There was no pericardial effusion. SYSTEMIC VEINS: Inferior vena cava: The vessel was normal in size. Patient weight: 154.7lb _Ejection fraction:_ 65-75% _Fractional shortening:_ 32% up to 5Kg 5-11.5Kg 11.6-22.9Kg 23-45Kg 45-57Kg Aortic Root 7-13 <17 13-22 17-27 17-27 LA diam 6-13 <23 24-38 33-47 37-40 RVID 10-17 7-15 7-15 7-18 8-17 LVIDd 12-22 <32 24-38 33-47 37-40 LVPW 2-4 3-6 5-7 6-8 7-8 IVS 2-4 3-6 5-7 6-8 7-8 BASIC MEASUREMENTS ADULT NORMAL Left ventricle LV internal dimension, ED, chordal 43.9 mm 43-52 level, PLAX LV internal dimension, ES, chordal 29.1 mm 23-38 level, PLAX Fractional shortening, chordal level, 34 % >29 PLAX LV posterior wall thickness, ED 7.02 mm IVS/LVPW ratio, ED 0.95 <1.3 Ventricular septum Septal thickness, ED 6.64 mm Aortic valve Leaflet separation 19 mm 15-26 BASIC MEASUREMENTS ADULT NORMAL Aortic valve Leaflet separation 19 mm 15-26 Aorta Root diameter, ED 21 mm 20-37 Left atrium Anterior-posterior dimension, ES 29 mm 19-40 Anterior-posterior dimension index, ES 1.69 cm/m^2 <2.2 LA/aortic root ratio 1.38 DOPPLER MEASUREMENTS ADULT NORMAL Main pulmonary artery Pressure, S 19 mm Hg =30 Aortic valve Peak velocity, S 102 cm/s Valve area, Vmax 2.25 cm^2 Valve area index, Vmax 1.31 cm^2/m^2 Mitral valve Peak E-wave velocity 83.9 cm/s Peak A-wave velocity 53.3 cm/s Deceleration time 225 ms 150-230 Peak gradient, D 3 mm Hg Peak E/A ratio 1.6 Tricuspid valve Regurgitant peak velocity 185 cm/s Peak RV-RA gradient, S 14 mm Hg Maximal regurgitant velocity 185 cm/s Systemic veins Estimated CVP 10 mm Hg Right ventricle RV pressure, S 24 mm Hg <30 Pulmonic valve Peak velocity, S 117 cm/s LEGEND: Mean values are shown as u=mean value. Asterisk (*) dias values outside specified normal range. Prepared and signed by Henrique Del Castillo [id number]
[2016-12-14] MEDS ORDERED: DILT31TA PO (15:50)
--- NOTE | 2016-12-14 15:50 | HHI.DCPOC ---
Discharge Care Plan Diagnosis: (1) SVT (supraventricular tachycardia) (2) Elevated troponin level Goals to Promote Your Health * To prevent worsening of your condition and complications * To maintain your health at the optimal level Directions to Meet Your Goals Take your medications as prescribed Follow your dietary instruction Follow activity as directed Keep your appointments as scheduled Take your immunizations and boosters as scheduled If your symptoms worsen call your PCP, if no PCP go to Urgent Care Center or Emergency Room Smoking is Dangerous to Your Health. Avoid second hand smoke Call the 24-hour hour crisis hotline for domestic abuse at Natasha Haywood MD Dec 14, 2016 15:50
[2016-12-14] MEDS: SODIUM CHLORIDE 0.9% FLUSH 10 ML FLUSH IV FLUSH SCH (17:10)
--- NOTE | 2016-12-16 16:18 | HM ---
Date Performed: 12/15/2016 Time Performed: 14:39:00 HOOKUP DATE: 12/15/16 02:39:00 PM Sun ANALYSIS START TIME: 12/15/2016 2:44:00 PM ANALYSIS END TIME: 12/16/2016 2:48:00 PM PATIENT AGE: 46 PATIENT HEIGHT PATIENT WEIGHT DRUG LIST PATIENT DIAGNOSIS: ELEVATED TROPONIN/SVT TEST NARRATIVE: The patient's average heart rate was 75 BPM. No episodes of tachycardia wer e noted. No episodes of bradycardia were noted. No pauses exceeding 2.0 seconds were noted. No ventricular ectopics were noted. 1 supraventricular ectopics, which represented < 1% of the to zuri beat count, were noted. The highest supraventricular ectopic frequency occurred from 06:00 AM to 07:00 AM Mon. During this time 1 SVE(s) occurred. No episodes of ST depression (defined as -1.0 mm or more) were noted in channel 1. No episodes of ST depression (defined as -1.0 mm or more) were noted in channel 2. No episodes of ST depression (defined as -1.0 mm or more) were noted in channel 3. TEST INTERPRETATION: 24 Hour Holter Monitor-Dr. Tiara Rosen Patient undergoes a Holter monitor t o evaluate a clinical dysrhythmi. There is no diary provided. Only the expanded tracings are subjec t to interpretation. Patient shows Sinus rhythm with rare premature atrial contractions. There is essentially no ventricular ectopy. There is no a rrhythmias noted, and no Bradycardia noted. CONCLUSION: Normal Holter monitor with sinus rhythm and r are premature atrial contractions. No significant tachy arrhythmias, or John arrhythmia. The maximum heart rate is sinus tachycardia at 117 beats per minute. There is no diary provided so it is unknown as to which the patient is symptomatic. Signed by : Tiara Rosen
== END 2016-12-14 17:55 | disposition home or self-care (01) | DRG 309 ==
LOC: NEPC 14:17 → NEDA 16:53 → N04B 19:07
PROVIDERS: ADMIT Family Medicine; ATTEND Family Medicine
DX: I47.1 Supraventricular tachycardia (principal); N17.9 Acute kidney failure, unspecified; E83.42 Hypomagnesemia; E86.0 Dehydration; F41.9 Anxiety disorder, unspecified; N95.1 Menopausal and female climacteric states
CPT/HCPCS: 71010; 71275; 80053; 80061; 81001; 82550; 82552; 83735; 84443; 84484; 84703; 85025; 85610; 85730; 93005; 93225; 93226; 93306; 96361; 96374; 96375; J2060; J3475; J7030; J7040; Q9967

== ENCOUNTER 2017-06-09 20:29 | Observation (INO) | payer OTHER ==
[~2017-06-09] VITALS: Ht 160 cm; Wt 70.0 kg
[~2017-06-09 20:29] MED LIST: CHOL5000 PO; DILT31TA PO; MULT-135 PO
[2017-06-09 20:30] VITALS: BP 140/86; PULSE 118; RESP 20; TEMP 98.7; O2SAT 98
[2017-06-09] MEDS ORDERED: SODIUM CHLORIDE 0.9% FLUSH 10 ML FLUSH IVF PRN (20:45)
[2017-06-09] MEDS ORDERED: SODIUM CHLOR 0.9% 1000 ML INJ 1,000 ML IV ONE (20:45)
--- NOTE | 2017-06-09 20:46 | PD ---
HPI Chief Complaint: Cardiac Complaint Time Seen by Provider: 20:33 Travel History International Travel<30 days: No Contact w/Intl Traveler<30days: No Traveled to known affect area: No History of Present Illness HPI 46-year-old female presents to the emergency department for evaluation palpitations, SVT. Patient was seen in December with SVT. She was discharged with a prescription for Cardizem every 6 hours. She states she took the Cardizem for 3 days, but then quit taking it because it gave her insomnia. The patient states that she was washing her daughter's hair when suddenly she started feeling palpitations. She states she is unable to get her heart rate to slow down and she called EMS. She states that after the palpitations started , she did have 2 bowel movements, but this did not resolve her SVT. The patient states she has been under increased stress due to divorce, but actually has been doing better. She thinks she may have overdone it today and she did a lot of housework. Patient denies any caffeine or supplements. No stimulants. No Sudafed. She states she only drinks water and stays away from anything due to history of SVT. Patient denies any headache. No fevers or chills. No chest pain or shortness breath. No abdominal pain. No nausea, vomiting, diarrhea. She denies . She denies thyroid disease. PFSH Past Medical History Arthritis: No Asthma: No Autoimmune Disease: No Heart Rhythm Problems: No Cancer: No Cardiovascular Problems: Yes (At present) High Cholesterol: No Chest Pain: No Congestive Heart Failure: No COPD: No Cerebrovascular Accident: No Diabetes: No Diminished Hearing: No Endocrine: No GERD: No Genitourinary: No Hiatal Hernia: Yes (Abd hernia surgury in the past) Immune Disorder: No Kidney Stones: No Musculoskeletal: Yes Neurologic: Yes Psychiatric: No Reproductive: No Respiratory: Yes Migraines: Yes Renal Failure: No Seizures: No Sleep Apnea: No Thyroid Disease: No Ulcer: No Past Surgical History Abdominal Surgery: Yes (Abdomina Hernia) Social History Alcohol Use: No Tobacco Use: No Substance Use: No Allergies-Medications (Allergen,Severity, Reaction): Coded Allergies: amoxicillin (Verified Allergy, Intermediate, Rash, 06/09/17) acetaminophen (Unverified Allergy, Unknown, Dizziness, 06/09/17) "I pass out if I take it" penicillin G (Unverified Allergy, Unknown, 06/09/17) Reported Meds & Prescriptions Reported Meds & Active Scripts Active Cardizem (Diltiazem HCl) 30 Mg Tab 30 Mg PO Q6HR Review of Systems Except as stated in HPI: all other systems reviewed are Neg Physical Exam Narrative GENERAL: Well-nourished, well-developed female patient, afebrile. SKIN: Focused skin assessment warm/dry. HEAD: Normocephalic. Atraumatic. EYES: No scleral icterus. No injection or drainage. NECK: Supple, trachea midline. No JVD or lymphadenopathy. CARDIOVASCULAR: Regular rhythm without murmurs, gallops, or rubs. Patient is tachycardic with heart rate 110-125. RESPIRATORY: Breath sounds equal bilaterally. No accessory muscle use. Lungs sounds are clear to auscultation. GASTROINTESTINAL: Abdomen soft, non-tender, nondistended. MUSCULOSKELETAL: No cyanosis, or edema. BACK: Nontender without obvious deformity. No CVA tenderness. Data Data Last Documented VS Vital Signs Date Time Temp Pulse Resp B/P (MAP) Pulse Ox O2 Delivery O2 Flow Rate FiO2 06/09/17 21:08 112 16 127/78 (94) 100 Room Air 06/09/17 20:30 98.7 Orders Orders Electrocardiogram (06/09/17 20:39) Basic Metabolic Panel (Bmp) (06/09/17 20:39) Ckmb (Isoenzyme) Profile (06/09/17 20:39) Complete Blood Count With Diff (06/09/17 20:39) Magnesium (Mg) (06/09/17 20:39) Troponin I (06/09/17 20:39) Chest, Single Ap (06/09/17 20:39) Ecg Monitoring (06/09/17 20:39) Bilateral Bp Monitoring (06/09/17 20:39) Iv Access Insert/Monitor (06/09/17 20:39) Oximetry (06/09/17 20:39) Oxygen Administration (06/09/17 20:39) Sodium Chloride 0.9% Flush (Ns Flush) (06/09/17 20:45) Sodium Chlor 0.9% 1000 Ml Inj (Ns 1000 M (06/09/17 20:45) Thyroid Stimulating Hormone (06/09/17 20:39) Urinalysis - C+S If Indicated (06/09/17 20:39) Ed Urine Pregnancytest Poc (06/09/17 20:39) CKMB (06/09/17 21:00) CKMB% (06/09/17 21:00) Aspirin Chew (Aspirin Chew) (06/09/17 22:30) Admit Order (Ed Use Only) (06/09/17 22:54) Labs Laboratory Tests Test 06/09/17 20:50 06/09/17 21:00 Urine Color COLORLESS Urine Turbidity CLEAR Urine pH 7.0 Urine Specific [place] 1.005 Urine Protein NEG mg/dL Urine Glucose (UA) NEG mg/dL Urine Ketones NEG mg/dL Urine Occult Blood NEG Urine Nitrite NEG Urine Bilirubin NEG Urine Urobilinogen LESS THAN 2.0 MG/DL Urine Leukocyte Esterase NEG Urine RBC 1 /hpf Urine WBC 1 /hpf Urine Squamous Epithelial Cells <1 /hpf Microscopic Urinalysis Comment CULT NOT INDICATED White Blood Count 10.0 TH/MM3 Red Blood Count 4.12 MIL/MM3 Hemoglobin 12.3 GM/DL Hematocrit 37.2 % Mean Corpuscular Volume 90.1 FL Mean Corpuscular Hemoglobin 29.9 PG Mean Corpuscular Hemoglobin Concent 33.2 % Red Cell Distribution Width 13.1 % Platelet Count 182 TH/MM3 Mean Platelet Volume 10.3 FL Neutrophils (%) (Auto) 69.8 % Lymphocytes (%) (Auto) 23.1 % Monocytes (%) (Auto) 6.4 % Eosinophils (%) (Auto) 0.3 % Basophils (%) (Auto) 0.4 % Neutrophils # (Auto) 7.0 TH/MM3 Lymphocytes # (Auto) 2.3 TH/MM3 Monocytes # (Auto) 0.6 TH/MM3 Eosinophils # (Auto) 0.0 TH/MM3 Basophils # (Auto) 0.0 TH/MM3 CBC Comment DIFF FINAL Differential Comment Blood Urea Nitrogen 17 MG/DL Creatinine 0.77 MG/DL Random Glucose 102 MG/DL Calcium Level 7.9 MG/DL Magnesium Level 1.8 MG/DL Sodium Level 141 MEQ/L Potassium Level 3.6 MEQ/L Chloride Level 108 MEQ/L Carbon Dioxide Level 23.5 MEQ/L Anion Gap 10 MEQ/L Estimat Glomerular Filtration Rate 81 ML/MIN Total Creatine Kinase 101 U/L Creatine Kinase MB 1.0 NG/ML Troponin I 0.09 NG/ML Thyroid Stimulating Hormone 3rd Gen 1.570 uIU/ML MDM Medical Decision Making Medical Screen Exam Complete: Yes Emergency Medical Condition: Yes Medical Record Reviewed: Yes Interpretation(s) chest x-ray - CONCLUSION: Normal examination. Differential Diagnosis SVT versus selection abnormality versus ACS versus thyroid disease Narrative Course 46-year-old female presents to the emergency department for evaluation of SVT. Patient was given adenosine 6 mg 1 by EMS. She is in sinus tachycardia, heart rate 117, no acute ST changes according to her EKG. CBC, BMP, CK, troponin, magnesium, TSH, UA, urine test, chest x-ray are ordered and pending. Patient is given normal saline 1 L IV bolus. CBC is unremarkable. BMP shows no acute abnormality. CK is 101. Troponin is 0.09. Magnesium is 1.8. TSH is 1.570. UA is negative. UPT is negative. Chest x-ray is normal. Patient is given aspirin 160 mg due to elevated troponin. I Discussed admission to trend troponins and monitor. She verbalizes agreement to this. [facility] is paged for admission. Dr. Covington accepted admission. Diagnosis Primary Impression: SVT (supraventricular tachycardia) Additional Impression: Elevated troponin level Admitting Information Admitting Physician Requests: Observation Amira Issa Jun 09, 2017 20:46
[2017-06-09 21:08] VITALS: BP 127/78; PULSE 112; RESP 16; O2SAT 100
[2017-06-09 21:29] LABS: BLOOD, URINE NEG (NEG); GLUCOSE,URINE NEG (NEG); KETONE, URINE NEG (NEG); NITRITE,URINE NEG (NEG); SQUAMOUS EPITHELIAL CELL URINE <1 /hpf (0-5); URINE COLOR COLORLESS (YELLW/STRAW)
[2017-06-09 21:34] LABS: BASOPHIL % 0.4 % (0.0-2.0); EOSINOPHIL % 0.3 % (0.0-4.0); HEMATOCRIT 37.2 % (35.0-46.0); HEMO FLAGS DIFF FINAL; LYMPH % 23.1 % (9.0-44.0); LYMPHOCYTE # 2.3 TH/MM3 (1.0-4.8); MEAN CELL VOLUME 90.1 FL (80.0-100.0); MEAN CORPUSCULAR HEMOGLOBIN 29.9 PG (27.0-34.0); MEAN CORPUSCULAR HGB CONC 33.2 % (32.0-36.0); MONO % 6.4 % (0.0-8.0); NEUT % 69.8 % (16.0-70.0); PLATELET COUNT 182 TH/MM3 (150-450); RED BLOOD COUNT 4.12 MIL/MM3 (4.00-5.30); RED CELL DISTRIBUTION WIDTH 13.1 % (11.6-17.2)
--- NOTE | 2017-06-09 21:52 | RADRPT ---
EXAM DATE/TIME: 06/09/2017 20:44 [facility] COMPARISON: CHEST SINGLE AP, December 13, 2016, 14:41. INDICATIONS : Chest pain. MEDICAL HISTORY : None. SURGICAL HISTORY : None. ENCOUNTER: Initial ACUITY: 1 day PAIN SCORE: 4/10 LOCATION: Bilateral chest FINDINGS: A single view of the chest demonstrates the lungs to be symmetrically aerated without evidence of mas s, infiltrate or effusion. The cardiomediastinal contours are unremarkable. Osseous structures are intact. CONCLUSION: Normal examination. Andrea Gomez MD on June 09, 2017 at 21:51 Board Certified Radiologist. This report was verified electronically.
[2017-06-09 22:00] LABS: COMMENT (UR) CULT NOT INDICATED; CULTURE IF INDICATED CULT NOT INDICATED
[2017-06-09 22:05] LABS: ANION GAP 10 MEQ/L (5-15); BICARBONATE 23.5 MEQ/L (21.0-32.0); BLOOD UREA NITROGEN 17 MG/DL (7-18); CHLORIDE 108 MEQ/L (98-107); GLOMERULAR FILTRATION RATE 81 ML/MIN (>89); MAGNESIUM 1.8 MG/DL (1.5-2.5); POTASSIUM 3.6 MEQ/L (3.5-5.1); SODIUM (NA) 141 MEQ/L (136-145)
[2017-06-09 22:15] LABS: CREATINE KINASE 101 U/L (26-192)
[2017-06-09] MEDS ORDERED: ASPIRIN 81 MG CHEW TAB CHEW ONE (22:30)
[2017-06-09] MEDS ORDERED: SODIUM CHLORIDE 0.9% FLUSH 10 ML FLUSH IV FLUSH PRN (23:00)
[2017-06-09] MEDS ORDERED: NALOXONE HCL 0.4 MG/ML AMP IV PUSH PRN (23:00)
[2017-06-10] VITALS (8 sets, daily range): BP systolic 111–133; BP diastolic 68–78; PULSE 76–96; RESP 16–18; TEMP 97.8–98.6; O2SAT 97–98
[2017-06-10] MEDS: DILTIAZEM HCL 30 MG TAB PO SCH ×2 (00:17→05:05)
[2017-06-10 04:51] LABS: AUTOMATED NEUTROPHIL # 5.7 TH/MM3 (1.8-7.7); BASOPHIL # 0.1 TH/MM3 (0-0.2); BASOPHIL % 0.6 % (0.0-2.0); EOSINOPHIL % 0.1 % (0.0-4.0); HEMATOCRIT 38.5 % (35.0-46.0); HEMO FLAGS DIFF FINAL; LYMPH % 28.6 % (9.0-44.0); LYMPHOCYTE # 2.5 TH/MM3 (1.0-4.8); MEAN CELL VOLUME 89.9 FL (80.0-100.0); MEAN CORPUSCULAR HEMOGLOBIN 30.1 PG (27.0-34.0); MEAN CORPUSCULAR HGB CONC 33.5 % (32.0-36.0); MONO % 6.7 % (0.0-8.0); PLATELET COUNT 183 TH/MM3 (150-450); RED BLOOD COUNT 4.28 MIL/MM3 (4.00-5.30); WHITE BLOOD COUNT 8.8 TH/MM3 (4.0-11.0)
[2017-06-10 05:16] LABS: BICARBONATE 26.8 MEQ/L (21.0-32.0); POTASSIUM 3.9 MEQ/L (3.5-5.1)
--- NOTE | 2017-06-10 08:32 | EKG ---
Date Performed: 06/09/2017 Time Performed: 20:32:30 PTAGE: 46 years EKG: SINUS TACHYCARDIA ABNORMAL RHYTHM ECG PREVIOUS TRACING : 12/14/2016 03.02 When compared to prior EKG, patient is now tachycardic. DOCTOR: Cecy Dyer Interpretating Date/Time 06/10/2017 08:30:54
[2017-06-10] MEDS ORDERED: SODIUM CHLORIDE 0.9% FLUSH 10 ML FLUSH IV FLUSH SCH (09:00)
[2017-06-10] MEDS ORDERED: METOPROLOL TARTRATE 25 MG TAB PO SCH (10:00)
--- NOTE | 2017-06-10 10:06 | HHI.HP ---
HPI [facility] Primary [facility] Physician Angle Venegas MD Admission Diagnosis SVT, elevated troponin Diagnoses: Chief Complaint: Palpitations Travel History International Travel<30 Days: No Contact w/Intl Traveler <30 Da: No Traveled to Known Affected Are: No History of Present Illness Written by Tarun Vogel, acting as scribe for Dr. Hugo on 06/10/17 at 10:05. 46-year-old female with a past medical history of SVT who presented for palpitations. The patient states that she was working around the house, then over to pick something up, and after she stood up she began having palpitations. She tried to rest but had no improvement in her symptoms. She had a similar episode in December. She states when the paramedics arrived her heart rate was 220 and she was given IV medication by the paramedics which improved her heart rate. She denies having any chest pain, shortness breath, nausea, vomiting, abdominal pain. She did have 2 bowel movements after the palpitations began and the second was a little loose. She has been dealing with more stress lately secondary to her recent divorce, but feels like she had been doing well. She did have an episode of palpitations a week ago which improved after deep breathing and carotid massage. She was previously put on Cardizem after the last episode, but she only took it for about 3 days because it made her feel sluggish and foggy. She did follow up with paintless dent repair technician who stated that if she did not want any medications for this, the only other option was ablation, which she declined. The patient had sinus tachycardia, rate 120s , upon presentation to the ED. She reports improvement in her symptoms overnight. Review of Systems Except as stated in HPI: all other systems reviewed are Neg Past Family Social History Past Medical History Supraventricular tachycardia Past Surgical History Abdominal hernia repair Reported Medications None Allergies: Coded Allergies: amoxicillin (Verified Allergy, Intermediate, Rash, 06/09/17) acetaminophen (Unverified Allergy, Unknown, Dizziness, 06/09/17) "I pass out if I take it" penicillin G (Unverified Allergy, Unknown, 06/09/17) Active Ordered Medications Current Medications Medications (Trade) Dose Ordered Sig/Omega Route Start Time Stop Time Status Last Admin (NS Flush) 2 ml UNSCH PRN IV FLUSH 06/09/17 23:00 (NS Flush) 2 ml BID IV FLUSH 06/10/17 09:00 06/10/17 09:02 (Narcan Inj) 0.4 mg UNSCH PRN IV PUSH 06/09/17 23:00 (Lopressor) 25 mg Q12HR PO 06/10/17 10:00 Family History Adopted, family history unknown Social History Denies any alcohol, tobacco, drugs, or caffeine use Physical Exam Vital Signs Vital Signs Date Time Temp Pulse Resp B/P (MAP) Pulse Ox O2 Delivery O2 Flow Rate FiO2 06/10/17 07:44 98.6 83 16 111/68 (82) 97 06/10/17 03:13 98.2 94 18 120/71 (87) 97 06/10/17 01:30 77 06/10/17 00:46 97.8 96 18 127/74 (91) 98 06/10/17 00:35 06/09/17 21:08 112 16 127/78 (94) 100 Room Air 06/09/17 20:30 98.7 118 20 140/86 (104) 98 Physical Exam GENERAL: Well-developed well-nourished. In no acute distress. SKIN: Warm and dry. No lesions noted. HEENT: Normocephalic. Pupils equal and round. Mucous membranes pink and moist. CARDIOVASCULAR: Regular rate and rhythm. No murmur appreciated. RESPIRATORY: No accessory muscle use. Clear to auscultation. Breath sounds equal bilaterally. GASTROINTESTINAL: Abdomen soft, non-tender, nondistended. Bowel sounds x4. MUSCULOSKELETAL: No obvious deformities. No clubbing or cyanosis. No edema. NEUROLOGICAL: Awake and alert. No focal neurological deficits. Moves upper and lower extremities spontaneously. Normal speech. PSYCHIATRIC: Slightly anxious mood and affect; insight and judgment normal. Laboratory Laboratory Tests Test 06/09/17 20:50 06/09/17 21:00 06/10/17 04:35 Urine Color COLORLESS Urine Turbidity CLEAR Urine pH 7.0 Urine Specific [place] 1.005 Urine Protein NEG Urine Glucose (UA) NEG Urine Ketones NEG Urine Occult Blood NEG Urine Nitrite NEG Urine Bilirubin NEG Urine Urobilinogen LESS THAN 2.0 Urine Leukocyte Esterase NEG Urine RBC 1 Urine WBC 1 Urine Squamous Epithelial Cells <1 Microscopic Urinalysis Comment CULT NOT INDICATED White Blood Count 10.0 8.8 Red Blood Count 4.12 4.28 Hemoglobin 12.3 12.9 Hematocrit 37.2 38.5 Mean Corpuscular Volume 90.1 89.9 Mean Corpuscular Hemoglobin 29.9 30.1 Mean Corpuscular Hemoglobin Concent 33.2 33.5 Red Cell Distribution Width 13.1 13.0 Platelet Count 182 183 Mean Platelet Volume 10.3 10.1 Neutrophils (%) (Auto) 69.8 64.0 Lymphocytes (%) (Auto) 23.1 28.6 Monocytes (%) (Auto) 6.4 6.7 Eosinophils (%) (Auto) 0.3 0.1 Basophils (%) (Auto) 0.4 0.6 Neutrophils # (Auto) 7.0 5.7 Lymphocytes # (Auto) 2.3 2.5 Monocytes # (Auto) 0.6 0.6 Eosinophils # (Auto) 0.0 0.0 Basophils # (Auto) 0.0 0.1 CBC Comment DIFF FINAL DIFF FINAL Differential Comment Blood Urea Nitrogen 17 10 Creatinine 0.77 0.62 Random Glucose 102 109 Calcium Level 7.9 8.7 Magnesium Level 1.8 Sodium Level 141 141 Potassium Level 3.6 3.9 Chloride Level 108 109 Carbon Dioxide Level 23.5 26.8 Anion Gap 10 5 Estimat Glomerular Filtration Rate 81 104 Total Creatine Kinase 101 97 Creatine Kinase MB 1.0 Troponin I 0.09 0.09 Thyroid Stimulating Hormone 3rd Gen 1.570 Result Diagram: 06/10/1743406/10/17434 Imaging Last Impressions Chest X-Ray 06/09/172038 Signed Impressions: Service Date/Time: Friday, June 09, 2017 20:44 - CONCLUSION: Normal examination. MD Keshia De Lunai VTE Risk Assessment Caprini VTE Risk Assessment: No/Low Risk (score <= 1) Caprini Risk Assessment Model Point Value = 1 Point Value = 2 Point Value = 3 Point Value = 5 Age 41-60 Minor surgery BMI > 25 kg/m2 Swollen legs Varicose veins or History of unexplained or recurrent spontaneous Oral contraceptives or hormone replacement Sepsis (< 1 month) Serious lung disease, including pneumonia (< 1 month) Abnormal pulmonary function Acute myocardial infarction Congestive heart failure (< 1 month) History of inflammatory bowel disease Medical patient at bed rest Age 61-74 Arthroscopic surgery Major open surgery (> 45 min) Laparoscopic surgery (> 45 min) Malignancy Confined to bed (> 72 hours) Immobilizing plaster cast Central venous access Age >= 75 History of VTE Family history of VTE Factor V Leiden Prothrombin [id number] Lupus anticoagulant Anticardiolipin antibodies Elevated serum homocysteine Heparin-induced thrombocytopenia Other congenital or acquired thrombophilia Stroke (< 1 month) Elective arthroplasty Hip, pelvis, or leg fracture Acute spinal cord injury (< 1 month) Prophylaxis Regimen Total Risk Factor Score Risk Level Prophylaxis Regimen 0-1 Low Early ambulation 2 Moderate Order ONE of the following: *Sequential Compression Device (SCD) *Heparin 5000 units SQ BID 3-4 Higher Order ONE of the following medications: *Heparin 5000 units SQ TID *Enoxaparin/Lovenox 40 mg SQ daily (WT < 150 kg, CrCl > 30 mL/min) *Enoxaparin/Lovenox 30 mg SQ daily (WT < 150 kg, CrCl > 10-29 mL/min) *Enoxaparin/Lovenox 30 mg SQ BID (WT < 150 kg, CrCl > 30 mL/min) AND/OR *Sequential Compression Device (SCD) 5 or more Highest Order ONE of the following medications: *Heparin 5000 units SQ TID (Preferred with Epidurals) *Enoxaparin/Lovenox 40 mg SQ daily (WT < 150 kg, CrCl > 30 mL/min) *Enoxaparin/Lovenox 30 mg SQ daily (WT < 150 kg, CrCl > 10-29 mL/min) *Enoxaparin/Lovenox 30 mg SQ BID (WT < 150 kg, CrCl > 30 mL/min) AND *Sequential Compression Device (SCD) Assessment and Plan Assessment and Plan 46-year-old female with a past medical history of SVT who presented for palpitations SVT: Reportedly improved to sinus tachycardia after receiving adenosine in the field. Given Cardizem overnight and heart rate is continued to improve. The patient did not tolerate Cardizem in the past and is apprehensive about metoprolol, but willing to try it for now. Continue to monitor on telemetry. Consult cardiology. TSH within normal limits. Check UDS. Elevated troponin: Troponin 0.092, previously 0.07 on 12/14/16. Possibly due to demand ischemia secondary to the above. EKG with no definite ischemic changes. No complaints of chest pain. Cardiology consulted as above. DVT prophylaxis: SCDs Disposition: If the patient's heart rate remains stable and she is cleared by cardiology, discharge planning. Discussed Condition With Patient Attending Statement This note was transcribed by scribangie [Tarun Vogel]. I, Dr. Harjeet Hugo personally performed the history, physical exam, and medical decision making; and confirmed the accuracy of the information in the transcribed note. Authenticated by Dr. Harjeet Hugo on 06/10/17 at 23:03. Tarun Vogel Jun 10, 2017 10:06 Harjeet Hugo MD Jun 10, 2017 23:05
--- NOTE | 2017-06-10 16:51 | EKG ---
Date Performed: 06/10/2017 Time Performed: 09:11:02 PTAGE: 46 years EKG: Sinus rhythm Compared to prior tracing no significant change NORMAL ECG PREVIOUS TRACING : 06/10/2017 03.10 DOCTOR: Cecy Dyer Interpretating Date/Time 06/10/2017 16:51:17
--- NOTE | 2017-06-10 16:51 | EKG ---
Date Performed: 06/10/2017 Time Performed: 03:10:07 PTAGE: 46 years EKG: Sinus rhythm Compared to previous tracing, the patient is no longer tachycardic NORMAL ECG PREVIOUS TRACING : 06/09/17 @ 2031 DOCTOR: Cecy Dyer Interpretating Date/Time 06/10/2017 16:51:10
[2017-06-10] MEDS ORDERED: METO25TA3 PO (17:06)
--- NOTE | 2017-06-10 17:10 | HHI.PR ---
Addendum to Inpatient Note Addendum Reason: Additional Documentation Additional Information D/W cardiology, Dr. Reyes, reviewed the rhythm strips for SVT. He discussed ablation with the patient and the plan is for her to follow-up with him as outpatient for this. He recommends metoprolol 12.5 once daily. He has cleared patient for discharge from cardiology perspective. Discharge patient to home Condition on discharge: Improved Regular Diet as tolerated Regular activity Rx written: Metoprolol Follow-up with primary care physician and cardiology Tarun Vogel Jun 10, 2017 17:10
--- NOTE | 2017-06-10 18:55 | MB ---
cc: TYREE BALDERAS MD, HANSCY M.D. DATE OF CONSULTATION 06/10/2017 Electrophysiology consultation REASON FOR CONSULTATION Supraventricular tachyarrhythmia. HISTORY OF THE PRESENT ILLNESS Mrs. Smith is 46-year-old female with history of recurrent palpitations, previously seen at my office. Multiple episodes of supraventricular tachyarrhythmia. She was at home and began with palpitation. She was brought by [facility]. She received adenosine. Converted into sinus rhythm. Since hospitalization is asymptomatic. I was consulted for further evaluation and management. The chart was reviewed. The patient was evaluated. ALLERGIES ACETAMINOPHEN, AMOXICILLIN, PENICILLIN-G. SOCIAL HISTORY Negative for smoking and drinking. FAMILY HISTORY Noncontributory to her current medical condition. MEDICATIONS Mrs. Smith is taking at home metoprolol. REVIEW OF SYSTEMS Currently she refers no chest pain. No chest discomfort. No palpitations. No fever. PHYSICAL EXAMINATION GENERAL: Alert, fully oriented. VITAL SIGNS: Her blood pressure 120/78, pulse 76, respiratory rate 18. LUNGS: Ventilated. CARDIOVASCULAR: S1-S2. No gallop. No murmur. ABDOMEN: Soft. No mass, no bruits. EXTREMITIES: No edema. Electrocardiogram is sinus rhythm. LABORATORY DATA Hemoglobin 12.9, white blood cell 8.8. Potassium 3.9, creatinine 0.62. Troponin 0.03. ASSESSMENT AND RECOMMENDATIONS Mrs. Smith has supraventricular tachycardia. Tracing from the [facility] indicated now complex short VA interval tachyarrhythmia that terminated with adenosine. Reentrant tachycardia suspected. She is unable to tolerate beta-srinivas. She said even with 12.5 mg of metoprolol twice a day she spends the whole day in bed feeling tired. ablation discussed. The risks, the nature and the benefit of the procedure are clearly stated to her. The risks include pneumothorax, cardiac perforation, stroke and even . I spent at least 45 minutes talking to Mrs. Smith. At this point she wants to go home and think about her options. If necessary I will see her in the office in the next three weeks. Lexi Reyes MD HS/KK /6:31 PM 6:39 PM
== END 2017-06-10 19:28 | disposition home or self-care (01) ==
LOC: NEPC 20:29 → NEDA 22:56 → NEPGCP 06-10 00:34
PROVIDERS: ADMIT Internal Medicine; ATTEND Internal Medicine
DX: I47.1 Supraventricular tachycardia (principal); R74.8 Abnormal levels of other serum enzymes; Z79.899 Other long term (current) drug therapy
CPT/HCPCS: 71010; 80048; 81001; 82550; 82552; 83735; 84443; 84484; 84703; 85025; 93005; 96360; G0378; J7030

== ENCOUNTER 2017-06-18 12:42 | Day surgery (SDC) | payer OTHER ==
[~2017-06-18] VITALS: Ht 160 cm; Wt 65.8 kg
[2017-06-18] VITALS (8 sets, daily range): BP systolic 116–132; BP diastolic 51–83; PULSE 66–108; RESP 16–20; TEMP 97.8–98.8; O2SAT 100
[~2017-06-18 12:42] MED LIST changes: -CHOL5000 PO; -DILT31TA PO; +METO25TA3 PO; -MULT-135 PO
[2017-06-18] MEDS ORDERED: METOPROLOL TARTRATE 25 MG TAB PO PRN (13:45)
[2017-06-18] MEDS ORDERED: LORazepam 1 MG TAB SL SCH (13:45)
[2017-06-18] MEDS ORDERED: SODIUM CHLORID 0.9% 500 ML INJ 500 ML IV SCH (13:45)
[2017-06-18] MEDS ORDERED: POVIDONE IODINE 5% (ANTISEPSIS KIT) 4 APPLICATIONS EACH NARE PRN (13:45)
[2017-06-18] MEDS ORDERED: LACTATED RINGER'S 1000 ML IV PRN (13:45)
[2017-06-18] MEDS ORDERED: CHLORHEXIDINE GLUCONATE 2 % 1 PACK (2 CLOTHS) TOPICAL PRN (13:45)
[2017-06-18] MEDS ORDERED: INSULIN HUMAN REGULAR 1,000 UNITS/10 ML VIAL SQ PRN (13:45)
[2017-06-18] MEDS ORDERED: SODIUM CHLORID 0.9% 500 ML IV PRN (13:45)
[2017-06-18 13:59] LABS: BASOPHIL # 0.1 TH/MM3 (0-0.2); BASOPHIL % 0.6 % (0.0-2.0); EOSINOPHIL % 0.4 % (0.0-4.0); HEMATOCRIT 41.6 % (35.0-46.0); HEMO FLAGS DIFF FINAL; LYMPH % 43.1 % (9.0-44.0); LYMPHOCYTE # 3.5 TH/MM3 (1.0-4.8); MEAN CELL VOLUME 89.5 FL (80.0-100.0); MEAN CORPUSCULAR HEMOGLOBIN 29.8 PG (27.0-34.0); MEAN CORPUSCULAR HGB CONC 33.3 % (32.0-36.0); MONO % 6.7 % (0.0-8.0); NEUT % 49.2 % (16.0-70.0); PLATELET COUNT 216 TH/MM3 (150-450); RED BLOOD COUNT 4.65 MIL/MM3 (4.00-5.30); WHITE BLOOD COUNT 8.2 TH/MM3 (4.0-11.0)
[2017-06-18 14:07] LABS: APTT (PATIENT) 26.8 SEC (24.3-30.1); INTERNATIONAL NORMALIZED RATIO 1.1 RATIO; PROTHROMBIN TIME - PATIENT 12.1 SEC (9.8-11.6)
[2017-06-18 14:23] LABS: BICARBONATE 25.7 MEQ/L (21.0-32.0); POTASSIUM 3.5 MEQ/L (3.5-5.1)
[2017-06-18 14:33] LABS: BETA HCG QUANT 1 MIU/ML (0-5)
[2017-06-18] MEDS ORDERED: MIDAZOLAM HCL 2 MG/2 ML VIAL ONE (15:06)
[2017-06-18] MEDS ORDERED: ISOPROTERENOL HCL 1 MG/5 ML AMP ONE (15:06)
[2017-06-18] MEDS ORDERED: PROPOFOL 200 MG/20 ML AMP ONE (15:07)
[2017-06-18] MEDS ORDERED: HEPARIN-NS/PF INJ 1,000 ML ONE (15:24)
[2017-06-18] MEDS ORDERED: SODIUM CHLOR 0.9% 250 ML INJ 250 ML ONE (16:10)
--- NOTE | 2017-06-18 17:06 | CATHPROC ---
[facility] HIS Report Study Information Study Number Admission Scheduled Start Study Start [id number] Jun 18 2017 12:42PM 06/18/2017 Jun 18 2017 1:42PM [facility] Electrophysiology Study Admit Source Facility Department Other [facility] - Primary Care Sales Representative Physician and Clinical Staff Initial Lexi Jenkins Tack Welder Sol Frey,RT(R) TECH2 Recorder Miladys Hathaway,RN Scrub Stu Sanford,RT(R) Equipment Time Central Supply Worker Description Size Mfg Part Number Used/Scraped BIOSENSE ROY CATHETER, CELSIUS, 4MM, D [id number] 16:39 FR 7 Used INC. TYPE QUAD *[id number] 13:43 [employer] PACK, CCL CUSTOM * Used *[id number] 13:43 [employer] PACER [place], [place]B * 2530 *[id number] Used [id number] 13:43 Youth [employer]ise BLANKET,WARM AIR CCL * Used *[id number] [id number] 13:43 [employer] CATHETER, JSN, QUAD FR 5 Used *[id number] 13:43 [employer] CATHETER, JSN, QUAD FR 5 Used *[id number] 868383 13:43 [employer] CATHETER, JSN, QUAD FR 5 Used *[id number] 779499 13:43 [employer] CATHETER, JSN, QUAD FR 5 Used *[id number] 13:43 [employer] ELECTRODE KIT, YARELI X SURFACE * [id number] Used [id number] 13:44 [employer] SHEATH, EPS, FR5 FAST CATH FR 5 Used *[id number] [id number] 13:44 [employer] SHEATH, EPS, FR5 FAST CATH FR 5 Used *[id number] 598045 13:44 [employer] SHEATH, EPS, FR5 FAST CATH FR 5 Used *[id number] 833594 13:44 [employer] SHEATH, EPS, FR6 FAST CATH FR 6 Used *[id number] 15:26 [employer] SHEATH, EPS, FR8 FAST CATH FR 8 Used *[id number] [facility] [place] P[facility], ELECTROSURGICAL 13:43 * [id number] *[id number] Used SURGICAL GROUNDING (BLUE) Medication Medication Total Dose (Bolus/Oral) Medication Total Dosage/Unit 1% XYLOCAINE 40 mL Medications (Bolus/Oral) Medication Time Given Dosage/Unit Administered By Reason 1% XYLOCAINE 06/18/2017 3:41:00 PM 20 mL Eric Lexi 20 mL 1% XYLOCAINE given in lab by Lexi Pardo in Left Groin via Subcutaneous. 1% XYLOCAINE 06/18/2017 3:50:30 PM 20 mL Eric Lexi 20 mL 1% XYLOCAINE given in lab by Lexi Pardo in Right Groin via Subcutaneous. Medication (Drip) Medication Time Given Dosage/Unit Concentration/Unit Diluent (ml) Solution ISUPREL 06/18/2017 4:10:10 PM 4 mcg/min 1 mg 250 NaCl .9 4 mcg/min ISUPREL given in lab by Lexi Pardo via Peripheral IV. Pump/Drip Flow = 60 ml/hr using Na Cl .9 with a concentration of 1 mg in 250 ml. ISUPREL 06/18/2017 4:53:38 PM 4 mcg/min 1 mg 250 NaCl .9 4 mcg/min ISUPREL given in lab by Lexi Pardo via Peripheral IV. Pump/Drip Flow = 60 ml/hr using Na Cl .9 with a concentration of 1 mg in 250 ml. Initial Case Assessment Cardiovascular HR Rhythm NIBP Chest Pain 75 sr 112/68 0 Edema Present Skin color Skin None Normal Warm Dry Circulatory - Right Pulses Dorsalis Pedis 2 Scale (0,1,2,3,4,d) Circulatory - Left Pulses Dorsalis Pedis 2 Scale (0,1,2,3,4,d) Neurological State Oriented to time-place- Alert Moves all extremities person Respiration - General Respiration Rate SpO2 (%) O2 (lpm) (B/min) 18 100 2 Final Case Assessment Cardiovascular HR Rhythm NIBP Chest Pain 110 SR 107/52 0 Edema Present Skin color Skin None Normal Warm Dry Circulatory - Right Pulses Dorsalis Pedis 2 Scale (0,1,2,3,4,d) Circulatory - Left Pulses Dorsalis Pedis 2 Scale (0,1,2,3,4,d) Neurological State Oriented to time-place- Alert Moves all extremities person Respiration - General Respiration Rate SpO2 (%) (B/min) 18 99 Chronological Log Time Study Chronological Log 15:15:00 Patient arrived via Bed. 15:15:10 Patient Name, D.O.B, / Armband Verified By R.N. 15:15:50 Anesthesia at bedside. Assumes care of patient. see records for all meds and vitals during procedure 15:26:13 Pre-op and post- op instructions given; patient acknowledges understanding of instructions. 15:26:14 Verbal Stimulation=2 Physical Stimulation=2 Airway=2 Respiration=2 TOTAL=8. (0=absent, 1=li mited, 2=present) 15:26:46 Patient has been NPO for More than 6Hrs. since 5am 15::52 Skin Breakdown- none per patient 15::58 Patient Warmer Placed on the Table. 15::59 Disposable Defibrillator Pads Placed On Patient. 15:27:00 Bora Prominences Protected 15::01 IV Warmer Connected To Patient. 15:27:10 A # 20 IV was noted in the Antecubital (left). Grade = 0 15:27:19 A # 20 IV was noted in the Antecubital (right). Grade = 0 15:27:25 History and physical on the chart or being dictated. Assessment: Initial Case, HR=75 BPM, Rhythm=sr, QIMA=874/68 mmhg, Chest Pain=0, Edema=None, Col or=Normal, Skin = Warm, Dry Right Pulses: Mani Ped=2 15::26 Left Pulses: Mani Ped=2 Neurological: State=Alert, Ox3, LYNCH Respiration: Resp=18 B/min, SrQ5=844 %, O2=2 lpm 15:28:15 Table restraints applied according to hospital policy 15:28:21 Bilateral groins prepped with 2% chlorhexidine, and draped after a 3 minute waiting time. 15:31:15 paged 15:32:32 MD responded 15:36:00 Reference ECG taken Time Out. Correct patient, procedure, procedure equipment, site and side verified with physicia n present. Time 15:40:00 concurred by MD, individual staff and ELEMENTARY EDUCATION TUTOR. Time Out #2 - Consents verified, patient in correct position, all results are labled and displa yed, safety precautions 15:40:15 taken, antibiotics administered. Time out concurred by MD, individual staff and ELEMENTARY EDUCATION TUTOR in procedu re 15:40:59 Case Start 15:41:00 20 mL 1% XYLOCAINE given in lab by Lexi Pardo in Left Groin via Subcutaneous. 15:49:07 Vascular access was obtained in the Fem Vein (left). 15:49:11 Vascular access was obtained in the Fem Vein (left). 15:49:12 Vascular access was obtained in the Fem Vein (left). 15:49:15 A SHEATH, EPS, FR5 FAST CATH FR 5 was advanced into the Fem Vein (left) using the Modified Seldinger technique. 15:49:24 A SHEATH, EPS, FR5 FAST CATH FR 5 was advanced into the Fem Vein (left) using the Modified Seldinger technique. 15:49:27 A SHEATH, EPS, FR5 FAST CATH FR 5 was advanced into the Fem Vein (left) using the Modified Seldinger technique. 15:50:30 20 mL 1% XYLOCAINE given in lab by Lexi Pardo in Right Groin via Subcutaneous. 15:50:36 Vascular access was obtained in the Fem Vein (right). 15:50:39 Vascular access was obtained in the Fem Vein (right). 15:51:24 A SHEATH, EPS, FR6 FAST CATH FR 6 was advanced into the Fem Vein (right) using the Modified Seldinger technique. 15:51:49 A SHEATH, EPS, FR8 FAST CATH FR 8 was advanced into the Fem Vein (right) using the Modified Seldinger technique. A CATHETER, JSN, QUAD FR 5 was advanced vis Fem Vein (left) and placed in the CS. Placement was visually 15:53:06 confirmed under fluoroscopy. A CATHETER, JSN, QUAD FR 5 was advanced vis Fem Vein (left) and placed in the HRA. Placement wa s visually 15:53:48 confirmed under fluoroscopy. A CATHETER, JSN, QUAD FR 5 was advanced vis Fem Vein (left) and placed in the HRA. Placement wa s visually 15:54:32 confirmed under fluoroscopy. A CATHETER, JSN, QUAD FR 5 was advanced vis Fem Vein (left) and placed in the RVA. Placement wa s visually 15:54:37 confirmed under fluoroscopy. 15:55:35 EP STUDY IN PROGRESS. 4 mcg/min ISUPREL given in lab by Lexi Pardo via Peripheral IV. Pump/Drip Flow = 60 ml/hr us ing NaCl .9 with a 16:10:10 concentration of 1 mg in 250 ml. 16:37:16 Reference ECG taken 16:39:21 SVT INDUCED A CATHETER, CELSIUS, 4MM, D TYPE QUAD FR 7 was advanced vis Fem Vein (right) and placed in the ~EPS SITES~. 16:42:23 Placement was visually confirmed under fluoroscopy. SLOW PATHWAY 16:50:30 Catheter was removed 16:51:13 EP STUDY CONTINUED 4 mcg/min ISUPREL given in lab by Lexi Pardo via Peripheral IV. Pump/Drip Flow = 60 ml/hr us ing NaCl .9 with a 16:53:38 concentration of 1 mg in 250 ml. 16:55:[address] PARDO 17:00:23 Reference ECG taken 17:00:39 ABLATION COMPLETE 17:01:00 Case End 17:03:38 Catheter(s) removed without difficulty 17:03:40 Sheath(s) left in place, will be removed in Holding Area Assessment: Final Case, WZ=766 BPM, Rhythm=SR, NGFD=075/52 mmhg, Chest Pain=0, Edema=None, Col or=Normal, Skin = Warm, Dry Right Pulses: Mani Ped=2 17:03:42 Left Pulses: Mani Ped=2 Neurological: State=Alert, Ox3, LYNCH Respiration: Resp=18 B/min, SpO2=99 % 17:05:01 Sterile dressing applied to site 17:05:02 No case complications noted. 17:05:03 Cine recording checked. 17:05:04 Bedside Report will be given. 17:05:10 [facility]IC called. Spoke to YOLY 17:05:23 Defibrillator and ground pads removed. Skin intact. 17:05:24 Verbal Stimulation=2 Physical Stimulation=2 Airway=2 Respiration=2 TOTAL=8. (0=absent, 1=l imited, 2=present) 17:10:15 Patient moved to [facility] End Study - Contrast Media Used In Study Contrast Total Opened (mL) Total Used (mL) Total Wasted (mL) Unspecified 0 0 0 End Study - Radiation Exposure Fluoro Time (minutes) 3.6 End Study - Patient Disposition Complications Transferred To Interventional Outcome No Telemetry Bed successful
[2017-06-18] MEDS ORDERED: ONDANSETRON HCL 4 MG/2 ML VIAL IV PUSH PRN (17:30)
[2017-06-18] MEDS ORDERED: METOCLOPRAMIDE HCL 10 MG/2 ML VIAL IV PUSH PRN (17:30)
[2017-06-18] MEDS ORDERED: LIDOCAINE HCL 1% 50 ML VIAL INFIL PRN (17:30)
[2017-06-18] MEDS ORDERED: LORazepam 2 MG/ML VIAL IV PUSH PRN (17:30)
[2017-06-18] MEDS ORDERED: oxyCODONE/ACETAMINOPHEN 5 MG/325 MG TAB PO PRN ×2 (17:30)
[2017-06-18] MEDS ORDERED: ATROPINE SULFATE 1 MG/ML VIAL IV PUSH PRN (17:30)
[2017-06-18] MEDS ORDERED: BACITRACIN OINT 0.9 GM PKT TOP ONE (17:30)
[2017-06-18] MEDS ORDERED: SODIUM CHLOR 0.9% 250 ML INJ 250 ML IV PRN (17:30)
[2017-06-18] MEDS ORDERED: EPINEPHrine HCL (1:10,000) 1 MG/10 ML SYRINGE ONE (17:31)
[2017-06-18] MEDS ORDERED: ATROPINE SULFATE 1 MG/10 ML SYRINGE ONE (17:31)
[2017-06-19] VITALS (11 sets, daily range): BP systolic 96–109; BP diastolic 56–66; PULSE 60–100; RESP 14–16; TEMP 98.3; O2SAT 100
[2017-06-19 06:55] LABS: APTT (PATIENT) 27.4 SEC (24.3-30.1); INTERNATIONAL NORMALIZED RATIO 1.1 RATIO; PROTHROMBIN TIME - PATIENT 12.3 SEC (9.8-11.6)
--- NOTE | 2017-06-19 10:10 | PD.CARD.PN ---
Subjective Subjective Remarks Feels okay. Objective Medications Current Medications Medications (Trade) Dose Ordered Sig/Omega Route Start Time Stop Time Status Last Admin Sodium Chloride 500 ml @ 30 mls/hr [id number] IV 06/18/17 13:45 06/18/17 13:45 (Ativan) 1 mg CROP QUANTITATIVE GENETICIST SL 06/18/17 13:45 06/21/17 13:44 Lactated Ringer's 1,000 ml @ 30 mls/hr Q24H PRN IV 06/18/17 13:45 06/21/17 13:44 Sodium Chloride 500 ml @ 30 mls/hr [id number] PRN IV 06/18/17 13:45 06/21/17 13:44 (Lopressor) 25 mg CROP QUANTITATIVE GENETICIST PRN PO 06/18/17 13:45 06/21/17 13:44 (Betadine 5% Antisepsis Kit) 1 applic CROP QUANTITATIVE GENETICIST PRN EACH NARE 06/18/17 13:45 06/21/17 13:44 (Chlorhexidine 2% Cloth) 3 pack CROP QUANTITATIVE GENETICIST PRN TOPICAL 06/18/17 13:45 06/21/17 13:44 (NovoLIN R INJ) See Protocol Table ... CROP QUANTITATIVE GENETICIST PRN SQ 06/18/17 13:45 06/21/17 13:44 (Percocet 5-325 Mg) 1 tab Q4H PRN PO 06/18/17 17:30 (Percocet 5-325 Mg) 2 tab Q4H PRN PO 06/18/17 17:30 (Ativan Inj) 0.5 mg UNSCH PRN IV PUSH 06/18/17 17:30 06/19/17 17:29 (Atropine Inj) 0.5 mg UNSCH PRN IV PUSH 06/18/17 17:30 Sodium Chloride 250 ml @ 500 mls/hr ONCE PRN IV 06/18/17 17:30 06/19/17 17:29 (Reglan Inj) 10 mg Q4H PRN IV PUSH 06/18/17 17:30 (Zofran Inj) 4 mg Q4H PRN IV PUSH 06/18/17 17:30 (Xylocaine 1% Inj (50 ml)) 10 ml UNSCH PRN INFIL 06/18/17 17:30 06/19/17 17:29 Vital Signs / I&O Vital Signs Date Time Temp Pulse Resp B/P (MAP) Pulse Ox O2 Delivery O2 Flow Rate FiO2 06/19/17 07:30 98.3 62 16 109/66 (80) 100 06/19/17 06:00 70 06/19/17 05:00 60 06/19/17 04:00 72 06/19/17 04:00 71 14 96/56 (69) 100 06/19/17 03:00 64 06/19/17 02:00 62 06/19/17 01:00 62 06/19/17 00:00 66 06/18/17 23:00 86 16 116/51 (72) 100 06/18/17 23:00 66 06/18/17 22:00 74 06/18/17 21:00 82 06/18/17 20:00 108 06/18/17 19:15 97.8 93 16 119/68 (85) 100 06/18/17 19:00 92 06/18/17 18:00 94 20 124/72 (89) 100 06/18/17 18:00 94 06/18/17 13:54 98.8 83 18 132/83 (99) 100 I/O 06/18/17 06/18/17 06/18/17 06/19/17 06/19/17 06/19/17 07:00 15:00 23:00 07:00 15:00 23:00 Intake Total 100 ml 782 ml Output Total 650 ml Balance 100 ml 132 ml Intake Oral 100 ml 480 ml IV Total 302 ml Output Urine Total 650 ml Physical Exam GENERAL: Well-nourished, well-developed patient. SKIN: Warm and dry. Groin sites soft with no bruising or bleeding. HEAD: Normocephalic. EYES: No scleral icterus. No injection or drainage. NECK: Supple, trachea midline. No JVD or lymphadenopathy. CARDIOVASCULAR: Regular rate and rhythm without murmurs, gallops, or rubs. RESPIRATORY: Breath sounds equal bilaterally. No accessory muscle use. GASTROINTESTINAL: Abdomen soft, non-tender, nondistended. EXTREMITIES: No cyanosis, or edema. NEUROLOGICAL: Awake, alert, and oriented x 3. Non-focal. Laboratory Laboratory Tests Test 06/18/17 13:25 06/19/17 06:30 White Blood Count 8.2 TH/MM3 Red Blood Count 4.65 MIL/MM3 Hemoglobin 13.9 GM/DL Hematocrit 41.6 % Mean Corpuscular Volume 89.5 FL Mean Corpuscular Hemoglobin 29.8 PG Mean Corpuscular Hemoglobin Concent 33.3 % Red Cell Distribution Width 13.0 % Platelet Count 216 TH/MM3 Mean Platelet Volume 10.2 FL Neutrophils (%) (Auto) 49.2 % Lymphocytes (%) (Auto) 43.1 % Monocytes (%) (Auto) 6.7 % Eosinophils (%) (Auto) 0.4 % Basophils (%) (Auto) 0.6 % Neutrophils # (Auto) 4.0 TH/MM3 Lymphocytes # (Auto) 3.5 TH/MM3 Monocytes # (Auto) 0.5 TH/MM3 Eosinophils # (Auto) 0.0 TH/MM3 Basophils # (Auto) 0.1 TH/MM3 CBC Comment DIFF FINAL Differential Comment Prothrombin Time 12.1 SEC 12.3 SEC Prothromb Time International Ratio 1.1 RATIO 1.1 RATIO Activated Partial Thromboplast Time 26.8 SEC 27.4 SEC Blood Urea Nitrogen 12 MG/DL Creatinine 0.74 MG/DL Random Glucose 101 MG/DL Calcium Level 9.2 MG/DL Sodium Level 137 MEQ/L Potassium Level 3.5 MEQ/L Chloride Level 104 MEQ/L Carbon Dioxide Level 25.7 MEQ/L Anion Gap 7 MEQ/L Estimat Glomerular Filtration Rate 84 ML/MIN Human Chorionic Gonadotropin, Quant 1 MIU/ML Assessment and Plan Problem List: (1) SVT (supraventricular tachycardia) ICD Codes: I47.1 - Supraventricular tachycardia Status: Acute Plan: Stable status post SVT ablation. Discharge home. Follow-up with Dr. PARDO in 3 weeks per my discussion with him. Fernanda Woody Jun 19, 2017 10:10
--- NOTE | 2017-06-19 11:45 | MA ---
cc: DIANNA PARDO M.D. DATE 06/18/17 PROCEDURE PERFORMED Electrophysiology study, CS cannulation, 3-D mapping radiofrequency ablation of AV node, tachycardia, repeat electrophysiology study on Isuprel infusion. HISTORY Mrs. Smith is a 46-year-old female with history of supraventricular tachyarrhythmia, multiple emergency room visits who was admitted around 2 weeks ago with supraventricular tachyarrhythmia. Rate was around 180 to 200 beats per minute. During hospitalization was converted into sinus rhythm. The patient was readmitted today for electrophysiology study and ablation. The risks, the nature and the benefit of the procedure are clearly stated to her. The risks include pneumothorax, cardiac perforation, stroke, need for open heart surgery and even . The patient understood and agreed to proceed. PROCEDURE IN DETAIL After written informed consent was obtained, the patient was brought to the EP lab where she was prepped and draped in the usual sterile fashion. Conscious sedation was initiated and maintained throughout the procedure by anesthesiologist. Once sedation verified, the right and left inguinal area was anesthetized with 2% Xylocaine. Using modified Seldinger technique, the right femoral vein was cannulated on two occasions and two guidewire were advanced. Over the wire a 6 and an 8-[place] Hemaquet were advanced. Then the left femoral vein was cannulated on three occasions and three guidewire were advanced over the wire, three 5-[place] Hemaquet were advanced. Then under fluoroscopic guidance through the 5 and 6 [place] Hemaquet, four 5-[place] Ze[place]ander Charlene curved quadripolar electrophysiology catheter advanced and positioned on the His, upper right atrium, coronary sinus and right ventricular apex. Basic interval was measured. They were within normal limits. At this point atrial pacing protocol was performed. Atrial pacing protocol consisted of incremental atrial pacing as well as program stimulation with one drive train cycle length and up to two excess stimuli delivered. No tachyarrhythmia was induced. Then ventricular pacing protocol was performed. There was VA conduction and it was concentric. Then Isuprel infusion was initiated at four hilario. Atrial pacing protocol was repeated again, dropped and echo beat observed. No tachyarrhythmia was induced. Then Isuprel was discontinued. During atrial pacing protocol supraventricular tachyarrhythmia with intracardiac characteristic of AV mata reentrant tachycardia was induced. It was paced terminated. The VA time was around 64 milliseconds. Then Isuprel was discontinued. The patient went on multiple occasion on the same tachyarrhythmia. In all occasions she was pace terminated. Then through the 8-[place] Ze[place]ander Hemaquet, a Cordis Tapia D curve 4 mm mapping radiofrequency ablation catheter was advanced. Using [employer] endocardial solution mapping system a two-dimensional configuration of the right atrium was obtained. Then the catheter was placed subsequently at the tricuspid valve annulus. When a big and a small trifurcated observed radiofrequency energy was delivered. The patient was in junctional rhythm. Further burn was delivered posteriorly to the coronary sinus also. Then started junctional beat observed. Then atrial pacing protocol was repeated again. No echo beat, no drop observed. Wenckebach was reaching very earlier. Then ventricular pacing protocol was repeated, again no tachyarrhythmia was induced. Then Isuprel infusion was repeated at 4 hilario, no tachyarrhythmia was induced during atrial and ventricular pacing protocol. I did this at the coronary sinus also in both occasion, no tachyarrhythmia was induced. Then post Isuprel no tachyarrhythmia was induced. No echo beat, no drop observed. At that point procedure was completed. All catheters were removed. The patient going to be transferred to recovery room. No incident report. The patient tolerated procedure. Blood loss minimal. That was a very complex case. IMPRESSION 1. Electrocardiogram: At baseline the patient was in sinus, postprocedure electrocardiogram was unchanged. 2. Basic interval: Base cycle length was 780, AH was around 90 and HV was around 42-44 milliseconds. 3. Atrial pacing protocol: Wenckebach of the node at baseline was around 340 milliseconds, on Isuprel it was around 280, post Isuprel supraventricular tachyarrhythmia was induced. 4. Ventricular pacing protocol: There was VA conduction. No tachyarrhythmia was induced. It was concentric. 5. Tachyarrhythmia: Supraventricular tachyarrhythmia with characteristic of AV mata reentry tachycardia was induced. He was paced terminated. Slow pathway was mapped and ablated. Ablation was successful. CONCLUSION Successful electrophysiology study, mapping radiofrequency ablation of AV mata reentrant tachycardia, COMMENT/RECOMMENDATIONS The patient going to be transferred to the telemetry unit. Will be observed. When stable can be discharged home. MD BEATA Martinez/ZOYA /5:31 PM /11:33 AM
--- NOTE | 2017-06-19 12:19 | EKG ---
Date Performed: 06/18/2017 Time Performed: 18:18:42 PTAGE: 46 years EKG: Sinus rhythm . Compared to prior tracing no significant change Normal ECG PREVIOUS TRACING : 06/18/2017 13.55 DOCTOR: Tiara Rosen Interpretating Date/Time 06/19/2017 12:14:33
--- NOTE | 2017-06-19 12:19 | EKG ---
Date Performed: 06/19/2017 Time Performed: 06:35:12 PTAGE: 46 years EKG: Sinus rhythm Compared to prior tracing no significant change Normal ECG PREVIOUS TRACING : 06/18/2017 18.18 DOCTOR: Tiara Rosen Interpretating Date/Time 06/19/2017 12:14:45
--- NOTE | 2017-06-19 12:19 | EKG ---
Date Performed: 06/18/2017 Time Performed: 13:55:10 PTAGE: 46 years EKG: Sinus rhythm Compared to prior tracing no significant change Normal ECG PREVIOUS TRACING : 06/10/2017 09.11 DOCTOR: Tiara Rosen Interpretating Date/Time 06/19/2017 12:14:25
== END 2017-06-19 11:28 | disposition home or self-care (01) ==
LOC: HDOC 12:42 → HDIC 12:42 → HCIN 18:17 → HDOC 06-19 11:28
PROVIDERS: ATTEND Internal Medicine Interventional Cardiology
DX: I47.1 Supraventricular tachycardia (principal); Z79.01 Long term (current) use of anticoagulants
CPT/HCPCS: 00537; 80048; 84702; 85025; 85610; 85730; 86850; 86900; 86901; 93005; 93613; 93623; 93653; C1730; C1732; C2630; J1644; J2250; J3010; J7040; J7050; J0171; J0461

== ENCOUNTER → 2017-07-17 | Outpatient (CLI) | payer OTHER ==
[2017-07-17 13:42] LABS: AUTOMATED NEUTROPHIL # 2.2 TH/MM3 (1.8-7.7); BASOPHIL % 0.6 % (0.0-2.0); EOSINOPHIL # 0.1 TH/MM3 (0-0.4); EOSINOPHIL % 1.1 % (0.0-4.0); HEMATOCRIT 38.7 % (35.0-46.0); HEMO FLAGS DIFF FINAL; LYMPH % 49.2 % (9.0-44.0); LYMPHOCYTE # 2.6 TH/MM3 (1.0-4.8); MEAN CELL VOLUME 90.5 FL (80.0-100.0); MEAN CORPUSCULAR HEMOGLOBIN 30.4 PG (27.0-34.0); MEAN CORPUSCULAR HGB CONC 33.6 % (32.0-36.0); MONO % 7.1 % (0.0-8.0); PLATELET COUNT 180 TH/MM3 (150-450); RED BLOOD COUNT 4.28 MIL/MM3 (4.00-5.30); RED CELL DISTRIBUTION WIDTH 13.2 % (11.6-17.2); WHITE BLOOD COUNT 5.2 TH/MM3 (4.0-11.0)
[2017-07-17 14:05] LABS: ANION GAP 5 MEQ/L (5-15); AST (GOT) 15 U/L (15-37); BICARBONATE 29.7 MEQ/L (21.0-32.0); BLOOD UREA NITROGEN 11 MG/DL (7-18); CHLORIDE 103 MEQ/L (98-107); GLOMERULAR FILTRATION RATE 84 ML/MIN (>89); GLUCOSE,FASTING 87 MG/DL (74-99); POTASSIUM 4.3 MEQ/L (3.5-5.1); SODIUM (NA) 138 MEQ/L (136-145)
[2017-07-17 14:09] LABS: ALKALINE PHOSPHATASE 76 U/L (45-117); ALT (GPT) 16 U/L (10-53); FOLLICLE STIMULATING HORMONE 122.3 mIU/mL; HDL CHOLESTEROL 77.1 MG/DL (40.0-60.0); LDL CHOLESTEROL 81 MG/DL (0-99); TOTAL BILIRUBIN ADULT 0.5 MG/DL (0.2-1.0)
== END ==
LOC: PLAB 08:26
PROVIDERS: ATTEND Internal Medicine
DX: Z00.00 Encounter for general adult medical examination without abnormal findings (principal); Z78.0 Asymptomatic menopausal state; I47.1 Supraventricular tachycardia; E55.9 Vitamin D deficiency, unspecified
CPT/HCPCS: 80053; 80061; 82306; 83001; 85025